=== PATIENT | male | born 1985 | race Caucasian/White ===

== ENCOUNTER 2016-10-25 16:47 | Emergency (ER) | payer OTHER ==
[2016-10-25 17:11] VITALS: RESP 18
--- NOTE | 2016-10-25 17:28 | ED ---
URI HPI - General Chief Complaint: Upper Respiratory Infection Stated Complaint: SORE THROAT Time Seen by Provider: 10/25/16 17:15 Source: patient, RN notes reviewed Mode of arrival: ambulatory Limitations: no limitations - History of Present Illness Initial Comments: Patient is a 31-year-old male presents to the emergency room for evaluation of congestion and sore throat. Patient states sore throat began yesterday. Patient states the pain is not getting any better. Patient denies taking anything [id number]. Patient states pain is worse when he swallows. Patient does state he has a dry cough. Patient denies smoking. Patient denies headache, ear pain, chest pain, shortness of breath, abdominal pain, nausea, vomiting, diarrhea, constipation. Patient denies any fevers. Patient states he is up-to-date on all his immunizations. - Related Data Home Medications Medication Instructions Recorded Confirmed Paliperidone Palmitate [Invega 78 mg IM Q28D 06/17/16 10/25/16 Sustenna] Previous Rx's Medication Instructions Recorded Fluticasone Nasal [place] [Flonase 2 spr EA NOSTRIL DAILY PRN #1 10/25/16 Nasal [place]] bottle guaiFENesin [Mucinex] 1,200 mg PO BID PRN #12 tab.er.12h 10/25/16 Allergies Allergy/AdvReac Type Severity Reaction Status Date / Time No Known Allergies Allergy Verified 10/25/16 17:11 Review of Systems ROS Statement: Those systems with pertinent positive or pertinent negative responses have been documented in the HPI. ROS Other: All systems not noted in ROS Statement are negative. Past Medical History Past Medical History: No Reported History History of Any Multi-Drug Resistant Organisms: None Reported Past Surgical History: No Surgical Hx Reported Additional Past Surgical History / Comment(s): cyst over eye removed Past Psychological History: ADD/ADHD Smoking Status: Current every day smoker Past Alcohol Use History: Occasional Past Drug Use History: Marijuana General Exam - General Exam Comments Initial Comments: Sitting in exam room in no acute distress. Limitations: no limitations General appearance: alert, in no apparent distress Head exam: Present: atraumatic, normocephalic, normal inspection Eye exam: Present: normal appearance ENT exam: Present: normal exam, normal oropharynx, mucous membranes moist, TM's normal bilaterally, normal external ear exam Neck exam: Present: normal inspection, full ROM. Absent: tenderness, lymphadenopathy Respiratory exam: Present: normal lung sounds bilaterally. Absent: respiratory distress Cardiovascular Exam: Present: regular rate, normal rhythm, normal heart sounds Extremities exam: Present: normal inspection Back exam: Present: normal inspection Neurological exam: Present: alert, oriented X3, CN II-XII intact, normal gait Psychiatric exam: Present: normal affect, normal mood Skin exam: Present: warm, dry, intact, normal color. Absent: rash Course Vital Signs 10/25/16 17:08 Temperature 99.0 F Pulse Rate 88 Respiratory 18 Rate Blood Pressure 138/63 O2 Sat by Pulse 98 Oximetry Medical Decision Making - Medical Decision Making Patient is a 31-year-old male presents emergency room for evaluation of sinus congestion and sore throat. Influenza negative. Rapid strep negative. Patient 's symptoms viral. Advised patient to take Mucinex and Flonase for symptoms and to return to his primary care provider symptoms are not improving in 7 days. Patient states he understands everything that was discussed with him. Return parameters discussed. Case discussed with Dr. Skinner. - Lab Data Lab Results 10/25/16 10/25/16 Range/Units 17:38 17:38 Influenza Type A RNA Not Detected (Not Detectd) Influenza Type B (PCR) Not Detected (Not Detectd) Group A Strep Rapid Negative (Negative) Disposition Clinical Impression: Upper respiratory infection Disposition: HOME SELF-CARE Condition: Good Instructions: Upper Respiratory Infection (ED) Additional Instructions: Saltwater gargles. Take medications as directed. Take Tylenol or Motrin as needed for discomfort. Please follow up with primary care provider in 1-2 days. If any new symptom arises or symptoms worsen, return to ER as soon as possible. Prescriptions: Fluticasone Nasal [place] [Flonase Nasal [place]] 2 spr EA NOSTRIL DAILY PRN #1 bottle PRN Reason: Congestion guaiFENesin [Mucinex] 1,200 mg PO BID PRN #12 tab.er.12h PRN Reason: Congestion Referrals: India Zambrano MD [Primary Care Provider] - 1-2 days Time of Disposition: 18:13
[2016-10-25 18:37] VITALS: BP 131/78; PULSE 78; TEMP 97.9
== END 2016-10-25 18:36 | disposition home or self-care (01) ==
LOC: EC 16:47
DX: J02.9 Acute pharyngitis, unspecified (principal); Z79.899 Other long term (current) drug therapy; F17.200 Nicotine dependence, unspecified, uncomplicated
CPT/HCPCS: 87081; 87430; 87502; 99283

== ENCOUNTER 2017-01-11 14:13 | Emergency (ER) | payer OTHER ==
[2017-01-11 14:36] VITALS: RESP 20
--- NOTE | 2017-01-11 14:56 | ED ---
Extremity Problem HPI - General Chief complaint: Extremity Problem,Nontraumatic Stated complaint: Knee Pain Time Seen by Provider: 01/11/17 14:32 Source: patient Mode of arrival: ambulatory Limitations: no limitations - History of Present Illness Initial comments: Patient is a 31-year-old male chief complaint of left knee pain and redness and swelling for approximately 3 days. Patient reports this is happened before and he was told to follow-up with his primary care provider. He states that he did follow-up with primary care provider stated that it was a cyst and there is nothing they could do. Patient reports that it went away afterwards. Patient reports that it has returned and became increasingly worse over the past 3 days. He states that it is warm to touch. Patient states he is able to bear weight over his knee just discussed some discomfort with total flexion. Patient denies any recent fever, chills, shortness of breath, chest pain, back pain, abdominal pain, nausea vomiting, numbness or tingling, dysuria or hematuria, constipation or diarrhea, headaches or visual changes, or any other current symptoms - Related Data Home Medications Medication Instructions Recorded Confirmed Paliperidone Palmitate [Invega 78 mg IM Q28D 06/17/16 10/25/16 Sustenna] Previous Rx's Medication Instructions Recorded Fluticasone Nasal [place] [Flonase 2 spr EA NOSTRIL DAILY PRN #1 10/25/16 Nasal [place]] bottle guaiFENesin [Mucinex] 1,200 mg PO BID PRN #12 tab.er.12h 10/25/16 Ibuprofen [Motrin] 600 mg PO Q6HR PRN #30 tab 01/11/17 Allergies Allergy/AdvReac Type Severity Reaction Status Date / Time No Known Allergies Allergy Verified 01/11/17 14:36 Review of Systems ROS Statement: Those systems with pertinent positive or pertinent negative responses have been documented in the HPI. ROS Other: All systems not noted in ROS Statement are negative. Past Medical History Past Medical History: No Reported History History of Any Multi-Drug Resistant Organisms: None Reported Past Surgical History: No Surgical Hx Reported Additional Past Surgical History / Comment(s): cyst over eye removed Past Psychological History: ADD/ADHD Smoking Status: Current every day smoker Past Alcohol Use History: Occasional Past Drug Use History: Marijuana General Exam - General Exam Comments Initial Comments: Well-appearing 31-year-old male. Patient does appear to be mentally challenged. Limitations: no limitations General appearance: alert, in no apparent distress Head exam: Present: atraumatic, normocephalic, normal inspection Eye exam: Present: normal appearance, PERRL, EOMI. Absent: scleral icterus, conjunctival injection, periorbital swelling ENT exam: Present: normal exam, mucous membranes moist Neck exam: Present: normal inspection. Absent: tenderness, meningismus, lymphadenopathy Respiratory exam: Present: normal lung sounds bilaterally. Absent: respiratory distress, wheezes, rales, rhonchi, stridor Cardiovascular Exam: Present: regular rate, normal rhythm, normal heart sounds. Absent: systolic murmur, diastolic murmur, rubs, gallop, clicks GI/Abdominal exam: Present: soft, normal bowel sounds. Absent: distended, tenderness, guarding, rebound, rigid Extremities exam: Present: normal inspection, full ROM, normal capillary refill. Absent: tenderness, pedal edema, joint swelling, calf tenderness Left Upper Leg exam: Present: normal inspection, full ROM Knee exam: Present: normal inspection, full ROM, tenderness (tenderness and erythema over patella), swelling (Swelling over the distal patella.) Lower Leg exam: Present: normal inspection, full ROM Ankle exam: Present: normal inspection, full ROM Foot/Toe exam: Present: normal inspection, full ROM Neurovascular tendon exam: Present: no vascular compromise Gait: observed and normal Back exam: Present: normal inspection Neurological exam: Present: alert, oriented X3, CN II-XII intact Course Vital Signs 01/11/17 14:32 Temperature 98.1 F Pulse Rate 83 Respiratory 20 Rate Blood Pressure 121/81 O2 Sat by Pulse 99 Oximetry Medical Decision Making - Medical Decision Making Patient is a 31-year-old male with 3 days of increasing read this and swelling over the left knee. Patient reports that this is happened before. It does appear to be a patellar bursitis. There is relatively fluctuant. No evidence of significant erythema indicating signs of infection. Patient is able to bear weight over the knee and has full range of motion. Patient was given an Bang wrap for compression and instructed to put ice over it is much as possible. We discussed return parameters including returning if the redness starts to swell over the entire knee joint. Patient will be discharged with Motrin 800 instructed to take as directed. Patient also given referral for orthopedic physician patient understands needs to follow-up. Patient understands treatment plan will comply. - Radiology Data Radiology results: report reviewed Soft tissue protuberance swelling superficial to the patellar tendon. Correlate for bursitis, hematoma or soft tissue infection. Disposition Clinical Impression: Patellar bursitis of left knee Disposition: HOME SELF-CARE Condition: Good Instructions: Knee Bursitis (ED) Additional Instructions: Return to emergency department if the redness continues to spread. Follow-up with orthopedic physician next week. Apply ice over the knee is much as possible. Wear the Bang wrap whenever awake. He can remove the Bang wrap at night. Patient advised to take anti-inflammatory medications as prescribed. Return to the emergency department if any alarming signs or symptoms occur. Prescriptions: Ibuprofen [Motrin] 600 mg PO Q6HR PRN #30 tab PRN Reason: Pain Referrals: India Zambrano MD [Primary Care Provider] - 1-2 days José Luis Huang MD [STAFF PHYSICIAN] - 1-2 days Time of Disposition: 15:38
--- NOTE | 2017-01-11 15:25 | XR ---
EXAMINATION TYPE: XR knee complete LT DATE OF EXAM: 01/11/2017 3:01 PM COMPARISON: NONE HISTORY: 31-year-old male with left knee pain and swelling to the patella TECHNIQUE: 3 views FINDINGS: No acute fracture, subluxation, or dislocation. No knee joint effusion. Extensor mechanism is intact. Focal soft tissue protuberance and swelling measuring 5.2 x 2.1 cm located superficial to the patellar tendon. IMPRESSION: 1. No acute osseous abnormality seen. 2. Focal soft tissue protuberance and swelling superficial to the patellar tendon. Correlate for burs itis, hematoma, or soft tissue infection.
[2017-01-11 15:47] VITALS: BP 126/78; PULSE 74; TEMP 98
== END 2017-01-11 15:48 | disposition home or self-care (01) ==
LOC: EC 14:13
DX: M70.52 Other bursitis of knee, left knee (principal); F17.200 Nicotine dependence, unspecified, uncomplicated; Z79.899 Other long term (current) drug therapy
CPT/HCPCS: 99283

== ENCOUNTER 2017-01-13 17:03 | Emergency (ER) | payer OTHER ==
[2017-01-13 17:36] VITALS: BP 125/73; PULSE 77; RESP 18; TEMP 98.6
--- NOTE | 2017-01-13 18:32 | ED ---
Lower Extremity Injury HPI - General Chief Complaint: Extremity Injury, Lower Stated Complaint: left knee - draining Time Seen by Provider: 01/13/17 18:09 Source: patient, RN notes reviewed Mode of arrival: ambulatory - History of Present Illness Initial Comments: Patient is a 31-year-old male presents emergency department with draining out of his left knee. Patient was seen in emergency department 2 days ago and diagnosed with bursitis. Patient has significant swelling and redness over the left knee. Patient states that it popped an hour prior to arriving there is a purulent fluid coming from the area. Patient denies any decreased range of motion. Patient reports that this pain feels much relieved after the pressure was released. Patient states that he is not ALLERGIC to any antibiotics. Patient denies any fever or chills. - Related Data Home Medications Medication Instructions Recorded Confirmed Paliperidone Palmitate [Invega 78 mg IM Q28D 06/17/16 10/25/16 Sustenna] Previous Rx's Medication Instructions Recorded Fluticasone Nasal [place] [Flonase 2 spr EA NOSTRIL DAILY PRN #1 10/25/16 Nasal [place]] bottle guaiFENesin [Mucinex] 1,200 mg PO BID PRN #12 tab.er.12h 10/25/16 Ibuprofen [Motrin] 600 mg PO Q6HR PRN #30 tab 01/11/17 Sulfamethox-Tmp 800-160Mg [Bactrim 2 tab PO Q12HR 7 Days 01/13/17 DS 800-160 mg] Allergies Allergy/AdvReac Type Severity Reaction Status Date / Time No Known Allergies Allergy Verified 01/13/17 17:36 Review of Systems ROS Statement: Those systems with pertinent positive or pertinent negative responses have been documented in the HPI. ROS Other: All systems not noted in ROS Statement are negative. Past Medical History Past Medical History: No Reported History History of Any Multi-Drug Resistant Organisms: None Reported Past Surgical History: No Surgical Hx Reported Additional Past Surgical History / Comment(s): cyst over eye removed Past Psychological History: ADD/ADHD Smoking Status: Current every day smoker Past Alcohol Use History: Occasional Past Drug Use History: Marijuana General Exam - General Exam Comments Initial Comments: Pleasant 31-year-old male. No distress. General appearance: alert, in no apparent distress Head exam: Present: atraumatic, normocephalic, normal inspection Eye exam: Present: normal appearance, PERRL, EOMI. Absent: scleral icterus, conjunctival injection, periorbital swelling ENT exam: Present: normal exam, mucous membranes moist Neck exam: Present: normal inspection. Absent: tenderness, meningismus, lymphadenopathy Respiratory exam: Present: normal lung sounds bilaterally. Absent: respiratory distress, wheezes, rales, rhonchi, stridor Cardiovascular Exam: Present: regular rate, normal rhythm, normal heart sounds. Absent: systolic murmur, diastolic murmur, rubs, gallop, clicks GI/Abdominal exam: Present: soft, normal bowel sounds. Absent: distended, tenderness, guarding, rebound, rigid Extremities exam: Present: normal inspection, full ROM, normal capillary refill. Absent: tenderness, pedal edema, joint swelling, calf tenderness Left Upper Leg exam: Present: normal inspection, full ROM Knee exam: Present: full ROM. Absent: normal inspection (slight erythema and small incision where purulent fluid is draining out. ), tenderness, swelling Lower Leg exam: Present: normal inspection, full ROM Ankle exam: Present: normal inspection, full ROM Back exam: Present: normal inspection Neurological exam: Present: alert, oriented X3, CN II-XII intact Psychiatric exam: Present: normal affect, normal mood Skin exam: Present: warm, dry, intact, normal color. Absent: rash Course Vital Signs 01/13/17 17:33 Temperature 98.6 F Pulse Rate 77 Respiratory 18 Rate Blood Pressure 125/73 O2 Sat by Pulse 98 Oximetry Medical Decision Making - Medical Decision Making Patient is a 31-year-old male with an abscess over the left knee. Patient knee was drained and wound culture obtained. Patient given a sterile dressing and instructed to keep the area clean. Patient will be started on Bactrim. Patient understands he needs to take antibiotic antibiotic. Patient understands treatment plan will comply. Return parameters were discussed. Disposition Clinical Impression: Abscess of knee, left Disposition: HOME SELF-CARE Condition: Good Instructions: Abscess (ED) Additional Instructions: Patient advised to complete entire antibiotic prescription. Follow-up with primary care provider if symptoms continue persist for the next 2 days. Return to emergency Department if any alarming signs or symptoms occur. Keep the area covered. Prescriptions: Sulfamethox-Tmp 800-160Mg [Bactrim DS 800-160 mg] 2 tab PO Q12HR 7 Days Referrals: India Zambrano MD [Primary Care Provider] - 1-2 days Time of Disposition: 18:30
== END 2017-01-13 18:46 | disposition home or self-care (01) ==
LOC: EC 17:03
DX: L02.416 Cutaneous abscess of left lower limb (principal); F17.200 Nicotine dependence, unspecified, uncomplicated; Z79.899 Other long term (current) drug therapy
CPT/HCPCS: 87070; 87205; 99283

== ENCOUNTER → 2017-05-21 | Outpatient (CLI) | payer OTHER ==
--- NOTE | 2017-05-22 10:31 | ECHOF ---
Referral Reason:[id number] Syncope MEASUREMENTS -------- HEIGHT: 167.6 cm WEIGHT: 68.0 kg BP: IVSd: 1.1 cm (0.6 - 1.1) LVIDd: 3.8 cm (3.9 - 5.3) LVPWd: 1.1 cm (0.6 - 1.1) IVSs: 1.7 cm LVIDs: 2.1 cm LVPWs: 1.6 cm Ao Diam: 3.0 cm (2.0 - 3.7) AV Cusp: 1.8 cm (1.5 - 2.6) LA Diam: 3.7 cm (2.7 - 3.8) MV EXCURSION: 19.458 mm (> 18.000) MV EF SLOPE: 144 mm/s (70 - 150) EPSS: 0.4 cm MV E Juan M: 0.94 m/s MV DecT: 208 ms MV A Juan M: 0.70 m/s MV E/A Ratio: 1.33 RAP: 5.00 mmHg RVSP: 17.86 mmHg FINDINGS -------- Sinus rhythm. This was a technically good study. Left ventricular wall thickness is normal. Overall left ventricular systolic function is normal with, an EF between 55 - 60 %. The right ventricle is normal in size and function. The left atrium is normal in size. The right atrium is normal in size. The aortic valve is trileaflet, and appears structurally normal. No aortic stenosis or regurgitation. There is trace mitral regurgitation. Trace tricuspid regurgitation present. The right ventricular systolic pressure, as measured by Doppler, is 17.86mmHg. Pulmonic valve appears structurally normal. The aortic root size is normal. The pericardium is normal. CONCLUSIONS -------- 1. Sinus rhythm. 2. Trace tricuspid regurgitation present. 3. The right ventricular systolic pressure, as measured by Doppler, is 17.86mmHg. 4. Pulmonic valve appears structurally normal. 5. The aortic root size is normal. 6. The pericardium is normal. 7. This was a technically good study. 8. Left ventricular wall thickness is normal. 9. Overall left ventricular systolic function is normal with, an EF between 55 - 60 %. 10. The right ventricle is normal in size and function. 11. The left atrium is normal in size. 12. The right atrium is normal in size. 13. The aortic valve is trileaflet, and appears structurally normal. No aortic stenosis or regurgitation. 14. There is trace mitral regurgitation. FUR BLOWER: Meenu De La Cruz RDCS
== END | disposition home or self-care (01) ==
LOC: RADECHMAIN 12:57
PROVIDERS: ATTEND Internal Medicine
DX: R55 Syncope and collapse (principal)
CPT/HCPCS: 93306

== ENCOUNTER 2017-07-29 09:25 | Emergency (ER) | payer OTHER ==
[2017-07-29 09:33] VITALS: BP 122/56; PULSE 81; RESP 18; TEMP 97.1
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
--- NOTE | 2017-07-29 10:04 | XR ---
Right wrist HISTORY: Trauma and pain 4 views of the right wrist Bone mineralization, alignment maintained. There is some widening of the scapholunate distance. No fr acture or dislocation. There is soft tissue swelling. IMPRESSION: Scapholunate distance dissociation, consider wrist MRI,
== END 2017-07-29 10:30 | disposition home or self-care (01) ==
LOC: EC 09:25
DX: S63.501A Unspecified sprain of right wrist, initial encounter (principal); F90.9 Attention-deficit hyperactivity disorder, unspecified type; F17.200 Nicotine dependence, unspecified, uncomplicated; Z79.899 Other long term (current) drug therapy; V29.9XXA Motorcycle rider (driver) (passenger) injured in unspecified traffic accident, initial encounter; Y93.55 Activity, bike riding
CPT/HCPCS: 29125; 99283

== ENCOUNTER 2017-12-26 13:42 | Emergency (ER) | payer OTHER ==
--- NOTE | 2017-12-26 15:30 | XR ---
EXAMINATION TYPE: XR chest 2V DATE OF EXAM: 12/26/2017 COMPARISON: Prior chest x-ray 03/28/2015 HISTORY: Chest pain TECHNIQUE: Frontal and lateral views of the chest are obtained. FINDINGS: There is no focal air space opacity, pleural effusion, or pneumothorax seen. The cardiac silhouette size is within normal limits. The osseous structures are intact. IMPRESSION: No acute cardiopulmonary process.
--- NOTE | 2017-12-26 15:48 | ED ---
General Adult HPI - General Chief complaint: Chest Pain Stated complaint: Chest pain Time Seen by Provider: 12/26/17 15:03 Source: patient, RN notes reviewed, old records reviewed Mode of arrival: wheelchair Limitations: no limitations - History of Present Illness Initial comments: This is a 32-year-old male to the ER for evasive chest pain. Patient states he' s had episodic chest pain 3 days. No prior history of chest pain no injuries. Patient states that when he moves his left arm he might have some increased pain in his left side of his chest. He again denies any injury or specific trauma, was wrestling with a friend but again denies any injury. Family brings inpatient, patient himself is poor historian secondary to underlying medical clinical condition. Patient has no fevers or shortness of breath. No modifying factors for pain - Related Data Home Medications Medication Instructions Recorded Confirmed Paliperidone Palmitate [Invega 78 mg IM Q28D 06/17/16 12/26/17 Sustenna] Previous Rx's Medication Instructions Recorded Naproxen [Naprosyn] 500 mg PO Q12HR PRN #30 tab 12/26/17 Allergies Allergy/AdvReac Type Severity Reaction Status Date / Time No Known Allergies Allergy Verified 12/26/17 15:10 Review of Systems ROS Statement: Those systems with pertinent positive or pertinent negative responses have been documented in the HPI. ROS Other: All systems not noted in ROS Statement are negative. Past Medical History Past Medical History: No Reported History History of Any Multi-Drug Resistant Organisms: None Reported Past Surgical History: No Surgical Hx Reported Additional Past Surgical History / Comment(s): cyst over eye removed Past Psychological History: ADD/ADHD Smoking Status: Current every day smoker Past Alcohol Use History: Occasional Past Drug Use History: Marijuana General Exam Limitations: no limitations General appearance: alert, in no apparent distress Head exam: Present: atraumatic, normocephalic, normal inspection Eye exam: Present: normal appearance, PERRL, EOMI. Absent: scleral icterus, conjunctival injection, periorbital swelling ENT exam: Present: normal exam, mucous membranes moist Neck exam: Present: normal inspection. Absent: tenderness, meningismus, lymphadenopathy Respiratory exam: Present: normal lung sounds bilaterally. Absent: respiratory distress, wheezes, rales, rhonchi, stridor Cardiovascular Exam: Present: regular rate, normal rhythm, normal heart sounds. Absent: systolic murmur, diastolic murmur, rubs, gallop, clicks GI/Abdominal exam: Present: soft, normal bowel sounds. Absent: distended, tenderness, guarding, rebound, rigid Extremities exam: Present: normal inspection, full ROM, normal capillary refill. Absent: tenderness, pedal edema, joint swelling, calf tenderness Back exam: Present: normal inspection Neurological exam: Present: alert, oriented X3, CN II-XII intact Psychiatric exam: Present: normal affect, normal mood Skin exam: Present: warm, dry, intact, normal color. Absent: rash Course Vital Signs 12/26/17 12/26/17 14:47 16:13 Temperature 98.3 F 98 F Pulse Rate 74 78 Respiratory 20 16 Rate Blood Pressure 141/79 139/79 O2 Sat by Pulse 99 98 Oximetry - Reevaluation(s) Reevaluation #1: Family's states that patient does have Motrin and Tylenol at home which he prefers not taking EKG Findings - EKG Comments: EKG Findings:: EKG shows normal sinus rhythm rate of 68, TX 1:30, QRS 78, QTC 421 Medical Decision Making - Medical Decision Making 32 male the ER for evaluation of chest pain, atypical nonspecific left-sided chest pain reproducible with palpation. No specific injury noted, x-rays negative. EKG normal and patient can be discharged home patient has no significant cardiac risk factors denies drug or alcohol abuse - Radiology Data Radiology results: report reviewed (Chest x-rays negative for acute disease), image reviewed Disposition Clinical Impression: Atypical chest pain, Costalchondritis Disposition: HOME SELF-CARE Condition: Good Instructions: Costochondritis (ED) Prescriptions: Naproxen [Naprosyn] 500 mg PO Q12HR PRN #30 tab PRN Reason: Pain Referrals: Bennie Mckinney MD [Primary Care Provider] - 1-2 days
[2017-12-26 16:14] VITALS: BP 139/79; PULSE 78; RESP 16; TEMP 98
--- NOTE | 2017-12-29 08:54 | CDI ---
Documentation Clarification OP Dear Kyler NGO, DO Please do addendum to ED report for HPI , Physical exam and MDM. 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
== END 2017-12-26 16:13 | disposition home or self-care (01) ==
LOC: EC 13:42
DX: M94.0 Chondrocostal junction syndrome [Tietze] (principal); F90.9 Attention-deficit hyperactivity disorder, unspecified type; F17.200 Nicotine dependence, unspecified, uncomplicated; Z79.899 Other long term (current) drug therapy
CPT/HCPCS: 71046; 93005; 99285

== ENCOUNTER 2018-03-05 11:09 | Emergency (ER) | payer OTHER ==
[2018-03-05 11:28] VITALS: BP 120/60; PULSE 64; RESP 20; TEMP 98.6
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
== END 2018-03-05 12:00 | disposition home or self-care (01) ==
LOC: EC 11:09
DX: S70.12XA Contusion of left thigh, initial encounter (principal); F79 Unspecified intellectual disabilities; F17.200 Nicotine dependence, unspecified, uncomplicated; Z79.899 Other long term (current) drug therapy; X58.XXXA Exposure to other specified factors, initial encounter
CPT/HCPCS: 99283

== ENCOUNTER 2018-04-06 10:37 | Emergency (ER) | payer OTHER ==
[2018-04-06 10:55] VITALS: BP 123/71; PULSE 60; RESP 18; TEMP 98.3
--- NOTE | 2018-04-06 11:58 | ED ---
General Adult HPI - General Chief complaint: Wound/Laceration Stated complaint: CUT ON LEFT SHOULDER Time Seen by Provider: 04/06/18 11:24 Source: patient, RN notes reviewed Mode of arrival: ambulatory Limitations: no limitations - History of Present Illness Initial comments: Patient 32-year-old male presented to the emergency room today with a chief complaint of a laceration to the left shoulder area. He states he does not know when it occurred. He noticed it yesterday. He does admit some local tenderness. He is met that he works in [employer] service is very active throughout the day. Patient denying any other complaints or symptoms. Patient denies any recent fever, chills, shortness of breath, chest pain, back pain, abdominal pain , nausea or vomiting, numbness or tingling, dysuria or hematuria, constipation or diarrhea, headaches or visual changes, or any other complaints. Patient denies any recent fever, chills, shortness of breath, chest pain, back pain, abdominal pain, headaches or visual changes, or any other complaints. - Related Data Home Medications Medication Instructions Recorded Confirmed Paliperidone Palmitate [Invega 78 mg IM Q28D 06/17/16 04/06/18 Sustenna] Previous Rx's Medication Instructions Recorded Cephalexin [Keflex] 500 mg PO Q12HR 10 Days cap 04/06/18 Allergies Allergy/AdvReac Type Severity Reaction Status Date / Time No Known Allergies Allergy Verified 04/06/18 11:32 Review of Systems ROS Statement: Those systems with pertinent positive or pertinent negative responses have been documented in the HPI. ROS Other: All systems not noted in ROS Statement are negative. Past Medical History Past Medical History: No Reported History Additional Past Medical History / Comment(s): mentally challenged-unsure of history History of Any Multi-Drug Resistant Organisms: None Reported Past Surgical History: No Surgical Hx Reported Additional Past Surgical History / Comment(s): cyst over eye removed Past Psychological History: ADD/ADHD Smoking Status: Current every day smoker Past Alcohol Use History: Occasional Past Drug Use History: Marijuana General Exam - General Exam Comments Initial Comments: General: The patient is awake and alert, in no distress, and does not appear acutely ill. Eye: Pupils are equal, round and reactive to light, extra-ocular movements are intact. No nystagmus. There is normal conjunctiva bilaterally. No signs of icterus. Ears, nose, mouth and throat: There are moist mucous membranes and no oral lesions. Neck: The neck is supple, there is no tenderness or JVD. Musculoskeletal: Normal ROM, no tenderness. Strength 5/5. Sensation intact. Pulses equal bilaterally 2+. Neurological: A&O x 3. CN II-XII intact, There are no obvious motor or sensory deficits. Coordination appears grossly intact. Speech is normal. Skin: Superficial laceration to the left shoulder area. Local redness. Psychiatric: Cooperative, appropriate mood & affect, normal judgment. Limitations: no limitations Course Vital Signs 04/06/18 10:51 Temperature 98.3 F Pulse Rate 60 Respiratory 18 Rate Blood Pressure 123/71 O2 Sat by Pulse 98 Oximetry Medical Decision Making - Medical Decision Making Patient's tetanus updated. Will be started on antibiotics cover for infection. Advised to he was secondary intentions at this time as lacerations is greater than 24 hours old. Disposition Clinical Impression: Laceration Disposition: HOME SELF-CARE Condition: Good Instructions: Laceration (ED) Additional Instructions: Please use medication as discussed. Please follow-up with family doctor in the next 2-5 days of symptoms have not improved. Please return to emergency room if the symptoms increase or worsen or for any other concerns. Prescriptions: Cephalexin [Keflex] 500 mg PO Q12HR 10 Days cap Is patient prescribed a controlled substance at d/c from ED?: No Referrals: India Zambrano MD [Primary Care Provider] - 1-2 days Time of Disposition: 12:00
[2018-04-06] MEDS ORDERED: DIPH,PERTUS(ACELL)TETVAC-LF 0.5 ML VIAL IM ONE (11:59)
== END 2018-04-06 12:26 | disposition home or self-care (01) ==
LOC: EC 10:37
DX: S41.012A Laceration without foreign body of left shoulder, initial encounter (principal); F90.9 Attention-deficit hyperactivity disorder, unspecified type; F17.200 Nicotine dependence, unspecified, uncomplicated; Z79.899 Other long term (current) drug therapy; Z23 Encounter for immunization; W45.8XXA Other foreign body or object entering through skin, initial encounter; Y93.9 Activity, unspecified; Y92.89 Other specified places as the place of occurrence of the external cause
CPT/HCPCS: 90471; 90715; 99282

== ENCOUNTER 2018-05-04 14:20 | Emergency (ER) | payer OTHER ==
[2018-05-04 15:30] VITALS: RESP 18; TEMP 98
[2018-05-04] MEDS ORDERED: IBUPROFEN 600 MG TAB PO STA (16:35)
--- NOTE | 2018-05-04 16:58 | ED ---
Wound/Laceration HPI - General Chief Complaint: Wound/Laceration Stated Complaint: finger lac Time Seen by Provider: 05/04/18 15:58 Source: patient Mode of arrival: ambulatory Limitations: no limitations - History of Present Illness Initial Comments: This is a 33yo male who denies PMH who presents today for CC of I crushed my left 4th finger yesterday afternoon. 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 He immediately noticed the nail was barely "hanging on" did not notice any lacerations. Pt friend irrigated and bandaged finger and gave him "some pill" for pain. Pt denies numbness, tingling, loss of sensation, decreased ROM, or mm weakness of the digit. Pt admited to pain at the tip affected digit, avulsion of nail and swelling of the finger tip. Pt presented to the ER to "make sure it wasnt broken ". Patient denies any recent fever, chills, shortness of breath, chest pain, back pain, abdominal pain, nausea or vomiting, numbness or tingling, dysuria or hematuria, constipation or diarrhea, headaches or visual changes, or any other complaints. Pt poor historian. Pt mother states his tDap was UTD he recieved it last year for different injury. " - Related Data Home Medications Medication Instructions Recorded Confirmed Paliperidone Palmitate [Invega 78 mg IM Q28D 06/17/16 05/04/18 Sustenna] Previous Rx's Medication Instructions Recorded Cephalexin [Keflex] 500 mg PO Q12HR 5 Days #10 cap 05/04/18 Allergies Allergy/AdvReac Type Severity Reaction Status Date / Time No Known Allergies Allergy Verified 05/04/18 16:15 Review of Systems ROS Statement: Those systems with pertinent positive or pertinent negative responses have been documented in the HPI. ROS Other: All systems not noted in ROS Statement are negative. Constitutional: Denies: fever, chills ENT: Denies: ear pain Respiratory: Denies: cough, dyspnea Cardiovascular: Denies: chest pain, palpitations Gastrointestinal: Denies: abdominal pain, nausea, vomiting Genitourinary: Denies: urgency, dysuria Musculoskeletal: Reports: as per HPI. Denies: back pain Skin: Reports: as per HPI Past Medical History Past Medical History: No Reported History Additional Past Medical History / Comment(s): mentally challenged-unsure of history History of Any Multi-Drug Resistant Organisms: None Reported Past Surgical History: No Surgical Hx Reported Additional Past Surgical History / Comment(s): cyst over eye removed Past Psychological History: ADD/ADHD Smoking Status: Current every day smoker Past Alcohol Use History: Occasional Past Drug Use History: Marijuana General Exam - General Exam Comments Initial Comments: General: The patient is awake and alert, in no distress, and does not appear acutely ill. Eye: Pupils are equal, round and reactive to light, extra-ocular movements are intact. No nystagmus. There is normal conjunctiva bilaterally. No signs of icterus. Ears, nose, mouth and throat: There are moist mucous membranes and no oral lesions. Neck: The neck is supple, there is no tenderness or JVD. Cardiovascular: There is a regular rate and rhythm. No murmur, rub or gallop is appreciated. Respiratory: Lungs are clear to auscultation, respirations are non-labored, breath sounds are equal. No wheezes, stridor, rales, or rhonchi. Gastrointestinal: [Soft, non-distended, non-tender abdomen without masses or organomegaly noted. There is no rebound or guarding present. No CVA tenderness. Bowel sounds are unremarkable.] Musculoskeletal: Normal ROM and 5/5 strength at MCP, PIP and DIP joints of all 5 digits of each hand b/l, tenderness over tip of 4th left digit Strength 5/5. Sensation intact. Pulses equal bilaterally 2+. Capillary refill <2sec. Neurological: A&O x 3. CN II-XII intact, There are no obvious motor or sensory deficits. Coordination appears grossly intact. Speech is normal. Skin: Skin is warm and dry and no rashes or lesions are noted. complete avulsion of left 4th digit nail, nail attached by small piece of skin. Pt would not allow me to remove nail to asess for nail bed laceration, no obvious nail bed laceration. Psychiatric: Cooperative, appropriate mood & affect, normal judgment. Limitations: no limitations Course Vital Signs 05/04/18 05/04/18 15:27 18:12 Temperature 98.0 F Pulse Rate 57 L 58 L Respiratory 18 18 Rate Blood Pressure 119/70 121/73 O2 Sat by Pulse 100 100 Oximetry Medical Decision Making - Medical Decision Making 33 with crush injury to tip of left 4th digit with complete nail avulision with only superficial attachment of nail to skin. XR obtained (-) fracture. wound irrigated and I attempted to cut back nail for nail bed assessment. Pt refused. I offered digital block pt refused. I urged him to let me perform procedure pt refused again. Pt neurovascularly intact and finger tissue compressible low suspicion for compartment syndrome. I discussed case with Dr. Madison who assessed pt in person. At this time we feel pt would benefit from abx for infection ppx and PCP f/u for wound check. Pt agreed with plan. Pt was instructed to use over the counter tylenol or ibuprofen for pain. Patient was discharged in stable condition. Disposition Clinical Impression: Nail avulsion, finger, Finger pain, left Disposition: HOME SELF-CARE Condition: Good Instructions: Nail Avulsion (ED) Additional Instructions: Please take over the counter medication as needed for pain. Please follow-up with your primary care physician in 1-2 days. Please return to the Emergency Department for worsening or change in symptoms as discussed. Prescriptions: Cephalexin [Keflex] 500 mg PO Q12HR 5 Days #10 cap Is patient prescribed a controlled substance at d/c from ED?: No Referrals: India Zambrano MD [Primary Care Provider] - 1-2 days Time of Disposition: 17:43
--- NOTE | 2018-05-04 17:21 | XR ---
PROCEDURE: XR hand complete LT - 3 views DATE AND TIME: 05/04/2018 5:13 PM REFERRING PHYSICIAN: Evangelina Roberson CLINICAL INDICATION: Left fourth digit pain and laceration. Pinched finger while carrying heavy furni ture. TECHNIQUE: 3 views COMPARISON: None FINDINGS: The distal phalanx of the fourth finger shows a comminuted fracture of its tuft, with extension proxi aide while most of the shaft of the distal phalanx. The fracture line does not appear to the distal interphalangeal joint. There are prominent associated soft tissue laceration changes, which involve t he nail and nailbed. There is prominent soft tissue swelling of the distal fourth finger. The soft tissues are otherwise u nremarkable. No radiopaque foreign bodies. No soft tissue emphysema. There is no other fracture. IMPRESSION: FOURTH FINGER DISTAL PHALANGEAL FRACTURE/LACERATION DETAILED.
[2018-05-04 18:13] VITALS: BP 121/73; PULSE 58
== END 2018-05-04 18:13 | disposition home or self-care (01) ==
LOC: EC 14:20
DX: S61.305A Unspecified open wound of left ring finger with damage to nail, initial encounter (principal); F17.200 Nicotine dependence, unspecified, uncomplicated; Z79.899 Other long term (current) drug therapy; W23.0XXA Caught, crushed, jammed, or pinched between moving objects, initial encounter; Y93.89 Activity, other specified
CPT/HCPCS: 99283

== ENCOUNTER 2018-06-23 11:45 | Emergency (ER) | payer OTHER ==
[2018-06-23] MEDS ORDERED: IBUPROFEN 600 MG TAB PO STA (12:34)
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
--- NOTE | 2018-06-23 13:26 | XR ---
Right RIBS with PA chest x-ray HISTORY: Trauma and pain Frontal view of the chest and 2 views of the right ribs submitted and correlated to prior chest x-ray 12/26/2017 Chest x-ray is stable. No evident displaced rib fracture. No pneumothorax or pleural effusion. IMPRESSION: No acute abnormality. Bone scan could be performed for increased sensitivity as indicated .
[2018-06-23 13:48] VITALS: BP 132/56; PULSE 81; RESP 20; TEMP 98.3
== END 2018-06-23 13:41 | disposition home or self-care (01) ==
LOC: EC 11:45
DX: S20.211A Contusion of right front wall of thorax, initial encounter (principal); F17.210 Nicotine dependence, cigarettes, uncomplicated; F12.20 Cannabis dependence, uncomplicated; Z79.899 Other long term (current) drug therapy; W50.0XXA Accidental hit or strike by another person, initial encounter
CPT/HCPCS: 99283

== ENCOUNTER 2018-08-03 18:42 | Emergency (ER) | payer OTHER ==
[2018-08-03 18:55] VITALS: BP 133/77; PULSE 79; RESP 18; TEMP 98.3
--- NOTE | 2018-08-03 20:38 | ED ---
URI HPI - General Chief Complaint: Upper Respiratory Infection Stated Complaint: Trouble Breathing Time Seen by Provider: 08/03/18 19:05 Source: patient Mode of arrival: ambulatory Limitations: no limitations - History of Present Illness Initial Comments: 33 yo male with no PMH presenting today for cc of sore throat, cough and congestion. Pt states that he has had these symptoms x5 days. Pt denies sputum production, fever, difficulty breathing or swallowing. Pt does admit to pain with swallowing. Pt denies chest pain, shortness of breath or dyspnea upon exertion. Patient denies any recent back pain, abdominal pain, nausea or vomiting, numbness or tingling, dysuria or hematuria, constipation or diarrhea, headaches or visual changes, or any other complaints. Pt is tolerating PO intake. Upon arrival pt VS stable. Pt is afebrile, pt appears well-dry cough audible upon exam. - Related Data Home Medications Medication Instructions Recorded Confirmed Paliperidone Palmitate [Invega 78 mg IM Q28D 06/17/16 06/23/18 Sustenna] Previous Rx's Medication Instructions Recorded Ibuprofen [Motrin] 600 mg PO Q8HR PRN #30 tab 06/23/18 Albuterol Inhaler [Ventolin Hfa 1 - 2 puff INHALATION RT-Q6H PRN 08/03/18 Inhaler] #1 inhaler Azithromycin [Zithromax] 500 mg PO DAILY 3 Days #3 tab 08/03/18 Allergies Allergy/AdvReac Type Severity Reaction Status Date / Time No Known Allergies Allergy Verified 08/03/18 18:55 Review of Systems ROS Statement: Those systems with pertinent positive or pertinent negative responses have been documented in the HPI. ROS Other: All systems not noted in ROS Statement are negative. Constitutional: Denies: fever, chills, weight change ENT: Reports: as per HPI, throat pain Respiratory: Reports: cough. Denies: dyspnea, wheezes, hemoptysis, stridor Cardiovascular: Denies: chest pain, palpitations Endocrine: Denies: fatigue Gastrointestinal: Denies: abdominal pain, nausea, vomiting, diarrhea, constipation Genitourinary: Denies: urgency, dysuria, frequency Musculoskeletal: Denies: back pain Skin: Denies: rash, lesions Neurological: Denies: headache, weakness, numbness, paresthesias, confusion Past Medical History Past Medical History: No Reported History Additional Past Medical History / Comment(s): mentally challenged-unsure of history History of Any Multi-Drug Resistant Organisms: None Reported Past Surgical History: No Surgical Hx Reported Additional Past Surgical History / Comment(s): cyst over eye removed Past Psychological History: ADD/ADHD Smoking Status: Current every day smoker Past Alcohol Use History: Occasional Past Drug Use History: Marijuana General Exam - General Exam Comments Initial Comments: General: The patient is awake and alert, in no distress, and does not appear acutely ill. Eye: Pupils are equal, round and reactive to light, extra-ocular movements are intact. No nystagmus. There is normal conjunctiva bilaterally. No signs of icterus. Ears, nose, mouth and throat: There are moist mucous membranes and no oral lesions. Uvula midline, mild erythema of the orophaynx there is no tonsillar enlargement or exudates. No palpable anterior cervical lymph adenopathy. No signs of peritonsillar abscess. Posterior nasal drip Neck: The neck is supple, there is no tenderness or JVD. Cardiovascular: There is a regular rate and rhythm. No murmur, rub or gallop is appreciated. Respiratory: Lungs are clear to auscultation, respirations are non-labored, breath sounds are equal. No wheezes, stridor, rales, or rhonchi. (-) egophany. Gastrointestinal: Soft, non-distended, non-tender abdomen without masses or organomegaly noted. There is no rebound or guarding present. Musculoskeletal: Normal ROM, no tenderness. Strength 5/5. Sensation intact. Radial pulses equal bilaterally 2+. Neurological: A&O x 3. CN II-XII intact, There are no obvious motor or sensory deficits. Coordination appears grossly intact. Speech is normal. Skin: Skin is warm and dry and no rashes or lesions are noted. Psychiatric: Cooperative, appropriate mood & affect, normal judgment. Limitations: no limitations Course Vital Signs 08/03/18 18:53 Temperature 98.3 F Pulse Rate 79 Respiratory 18 Rate Blood Pressure 133/77 O2 Sat by Pulse 98 Oximetry Medical Decision Making - Medical Decision Making Influenza and Strep pharnygitis testing (-) CXR (-), no clinical signs of pneumonia. No signs of peritonsillar abscess or concerning sings for strep pharyngitis. At this time I feel pt has a viral pharyngitis. Pt given zpack and haler given smoking history, and pt stating that he felt like he had a chest cold, however lungs clear upon auscultation. In addition pt was instructed to take over the counter ibuprofen and tylenol for sore throat, increase fluid intake and follow-up with primary provider in 1-2 days. Pt agreed with plan. Return parameters discussed in detail. Patient verbalized understanding. Case discussed with Kay , who agreed with impression and plan. Pt discharged in stable condition. - Lab Data Lab Results 08/03/18 08/03/18 Range/Units 19:35 20:25 Influenza Type A RNA Not Detected (Not Detectd) Influenza Type B (PCR) Not Detected (Not Detectd) Group A Strep Rapid Negative (Negative) Disposition Clinical Impression: Upper respiratory infection Disposition: HOME SELF-CARE Condition: Good Instructions: Upper Respiratory Infection (ED) Additional Instructions: Please use medication as discussed. Please follow-up with family doctor in the next 2 days. Please return to emergency room if the symptoms increase or worsen or for any other concerns. Prescriptions: Albuterol Inhaler [Ventolin Hfa Inhaler] 1 - 2 puff INHALATION RT-Q6H PRN #1 inhaler PRN Reason: Wheezing Azithromycin [Zithromax] 500 mg PO DAILY 3 Days #3 tab Is patient prescribed a controlled substance at d/c from ED?: No Referrals: India Zambrano MD [Primary Care Provider] - 1-2 days Time of Disposition: 21:10
--- NOTE | 2018-08-03 20:42 | XR ---
EXAMINATION: XR chest 2V DATE AND TIME: 08/03/2018 7:31 PM CLINICAL INDICATION: Pain; cough TECHNIQUE: Portable AP semiupright COMPARISON: 06/23/2018 FINDINGS: The lungs are clear. The pleural spaces are negative. The cardiac silhouette is not enlarged. The remainder of the mediastinal silhouette is unremarkable. The skeletal structures and soft tissues are negative for acute findings. IMPRESSION: NO DEFINITE ACUTE PROCESS.
== END 2018-08-03 21:18 | disposition home or self-care (01) ==
LOC: EC 18:42
DX: J06.9 Acute upper respiratory infection, unspecified (principal); F90.9 Attention-deficit hyperactivity disorder, unspecified type; F17.200 Nicotine dependence, unspecified, uncomplicated; Z79.899 Other long term (current) drug therapy
CPT/HCPCS: 71046; 87081; 87430; 87502; 99283

== ENCOUNTER 2018-08-13 15:01 | Emergency (ER) | payer OTHER ==
[2018-08-13] MEDS ORDERED: IPRATROPIUM-ALBUTEROL 3 ML NEB INHALATION STA (15:38)
[2018-08-13] MEDS ORDERED: DEXAMETHASONE SOD PHOSPHATE 10 MG/ML 1 ML VIAL IM STA (15:38)
[2018-08-13] MEDS ORDERED: AMOXIC-POT CLAV 875-125MG 1 EACH TAB PO STA (15:38)
[2018-08-13] MEDS ORDERED: AMOXIC-POT CLAV 875MG STARTER 2 EACH TABLET PO STA (15:38)
--- NOTE | 2018-08-13 16:42 | XR ---
EXAMINATION TYPE: XR chest 2V DATE OF EXAM: 08/13/2018 COMPARISON: 08/03/2018 HISTORY: Chest pain TECHNIQUE: Frontal and lateral views of the chest are obtained. FINDINGS: Heart and mediastinum are normal. Lungs are clear. Diaphragm is normal. Bony thorax appear s normal. IMPRESSION: Normal chest. No change.
--- NOTE | 2018-08-13 16:44 | XR ---
EXAMINATION TYPE: XR soft tissue neck DATE OF EXAM: 08/13/2018 COMPARISON: NONE HISTORY: Cough and short of breath TECHNIQUE: 2 views FINDINGS: Vertebra have normal alignment. Posterior elements are intact. Disc spaces are normal. Prev ertebral soft tissues appear normal. There are no cervical ribs. Atlantoaxial facet joint is normal. Epiglottis is normal. Subglottic trachea is normal. IMPRESSION: Normal cervical soft tissue exam.
--- NOTE | 2018-08-13 16:49 | ED ---
URI HPI - General Chief Complaint: Upper Respiratory Infection Stated Complaint: GINA Time Seen by Provider: 08/13/18 15:24 Source: patient, RN notes reviewed, old records reviewed Mode of arrival: ambulatory Limitations: no limitations - History of Present Illness Initial Comments: This is a 33-year-old male to the ER for evaluation patient presents today for eversion sore throat cough congestion. Patient history positive smoking, will see diagnosed upper respiratory infection mild bronchitis, patient states he took an inhaler but his symptoms are not significantly improving complaining of sore throat and mild anterior neck pain currently. No recent travel history or known sick contacts. Patient denies any other significant complaint MD Complaint: cough, sore throat -: week(s) Severity scale (1-10): 3 Quality: aching, tingling Consistency: constant Improves With: nothing Worsens With: nothing Context: sick contacts Associated Symptoms: fever, chills, cough Treatments Prior to Arrival: none - Related Data Home Medications Medication Instructions Recorded Confirmed Paliperidone Palmitate [Invega 78 mg IM Q28D 06/17/16 06/23/18 Sustenna] Previous Rx's Medication Instructions Recorded Ibuprofen [Motrin] 600 mg PO Q8HR PRN #30 tab 06/23/18 Albuterol Inhaler [Ventolin Hfa 1 - 2 puff INHALATION RT-Q6H PRN 08/03/18 Inhaler] #1 inhaler Azithromycin [Zithromax] 500 mg PO DAILY 3 Days #3 tab 08/03/18 Albuterol Sulfate [Proair Hfa] 1 - 2 puff INHALATION Q4H PRN #1 08/13/18 inhaler Amoxic-Pot Clav 875-125Mg 1 tab PO Q12HR #20 tablet 08/13/18 [Augmentin 875-125] Allergies Allergy/AdvReac Type Severity Reaction Status Date / Time No Known Allergies Allergy Verified 08/13/18 15:23 Review of Systems ROS Statement: Those systems with pertinent positive or pertinent negative responses have been documented in the HPI. ROS Other: All systems not noted in ROS Statement are negative. Past Medical History Past Medical History: No Reported History Additional Past Medical History / Comment(s): mentally challenged-unsure of history History of Any Multi-Drug Resistant Organisms: None Reported Past Surgical History: No Surgical Hx Reported Additional Past Surgical History / Comment(s): cyst over eye removed Past Psychological History: ADD/ADHD Smoking Status: Current every day smoker Past Alcohol Use History: Occasional Past Drug Use History: Marijuana General Exam Limitations: no limitations General appearance: alert, in no apparent distress Head exam: Present: atraumatic, normocephalic, normal inspection Eye exam: Present: normal appearance, PERRL, EOMI. Absent: scleral icterus, conjunctival injection, periorbital swelling ENT exam: Present: normal exam, mucous membranes moist Neck exam: Present: normal inspection. Absent: tenderness, meningismus, lymphadenopathy Respiratory exam: Present: normal lung sounds bilaterally. Absent: respiratory distress, wheezes, rales, rhonchi, stridor Cardiovascular Exam: Present: regular rate, normal rhythm, normal heart sounds. Absent: systolic murmur, diastolic murmur, rubs, gallop, clicks GI/Abdominal exam: Present: soft, normal bowel sounds. Absent: distended, tenderness, guarding, rebound, rigid Extremities exam: Present: normal inspection, full ROM, normal capillary refill. Absent: tenderness, pedal edema, joint swelling, calf tenderness Back exam: Present: normal inspection Neurological exam: Present: alert, oriented X3, CN II-XII intact Psychiatric exam: Present: normal affect, normal mood Skin exam: Present: warm, dry, intact, normal color. Absent: rash Course Vital Signs 08/13/18 15:19 Temperature 98.2 F Pulse Rate 76 Respiratory 20 Rate Blood Pressure 132/86 O2 Sat by Pulse 100 Oximetry - Reevaluation(s) Reevaluation #1: 08/13/18 17:04 Medical record is reviewed Patient is in no acute distress feeling better Medical Decision Making - Medical Decision Making 33 male the ER for evaluation. Patient was sore throat, we'll treat with antibiotics test is negative x-rays are negative patient can be discharged home - Lab Data Lab Results 08/13/18 Range/Units 16:00 Group A Strep Rapid Negative (Negative) - Radiology Data Radiology results: report reviewed (Chest x-ray and soft tissue neck x-rays negative), image reviewed Disposition Clinical Impression: Pharyngitis, Acute bronchitis Disposition: HOME SELF-CARE Condition: Good Instructions: Acute Bronchitis (ED), Pharyngitis (ED) Prescriptions: Albuterol Sulfate [Proair Hfa] 1 - 2 puff INHALATION Q4H PRN #1 inhaler PRN Reason: Shortness Of Breath Amoxic-Pot Clav 875-125Mg [Augmentin 875-125] 1 tab PO Q12HR #20 tablet Is patient prescribed a controlled substance at d/c from ED?: No Referrals: India Zambrano MD [Primary Care Provider] - 1-2 days
[2018-08-13 17:23] VITALS: BP 138/70; PULSE 78; RESP 16; TEMP 97.9
== END 2018-08-13 17:22 | disposition home or self-care (01) ==
LOC: EC 15:01
DX: J20.9 Acute bronchitis, unspecified (principal); J02.9 Acute pharyngitis, unspecified; F17.200 Nicotine dependence, unspecified, uncomplicated; Z98.890 Other specified postprocedural states; Z79.899 Other long term (current) drug therapy
CPT/HCPCS: 94640; 87081; 87430; 70360; 71046; 99285; 96372; J1100

== ENCOUNTER 2018-08-31 11:11 | Observation (INO) | payer OTHER ==
[2018-08-31 12:00] VITALS: BP 110/71; PULSE 89; RESP 16; TEMP 97.9
[2018-08-31 12:38] LABS: Basophils % (A) 0 %; Eosinophils # (A) 0.1 k/uL (0-0.7); Eosinophils % (A) 2 %; HCT 43.5 % (39.0-53.0); HGB 15.3 gm/dL (13.0-17.5); Lymphocytes # (A) 1.4 k/uL (1.0-4.8); Lymphocytes % (A) 19 %; MCH 31.4 pg (25.0-35.0); MCHC 35.3 g/dL (31.0-37.0); Mean Platelet Volume 8.6; Monocytes # (A) 0.4 k/uL (0-1.0); Monocytes % (A) 6 %; Neutrophils # (A) 5.2 k/uL (1.3-7.7); Neutrophils % (A) 72 %; Platelet Count 133 k/uL (150-450); RBC 4.88 m/uL (4.30-5.90); WBC 7.2 k/uL (3.8-10.6)
--- NOTE | 2018-08-31 12:44 | ED ---
Abdominal Pain HPI - General Chief Complaint: Skin/Abscess/Foreign Body Stated Complaint: Abdominal "bump" Time Seen by Provider: 08/31/18 11:25 Source: patient, RN notes reviewed, old records reviewed Mode of arrival: ambulatory Limitations: no limitations - History of Present Illness Initial Comments: This is a 33-year-old male the ER for evaluation of some groin pain and swelling noticed to the left side of his lower abdomen. Patient denies prior history of same, patient states he was doing some heavy lifting over the weekend and he woke up today noticing the swelling in his groin. No prior history of similar issue, no prior surgical history. MD Complaint: abdominal pain, other -: hour(s) Location: LLQ Migration to: other Severity: mild Severity scale (1-10): 3 Quality: aching Consistency: constant Improves With: nothing Worsens With: nothing (Groin) - Related Data Home Medications Medication Instructions Recorded Confirmed Paliperidone Palmitate [Invega 78 mg IM Q28D 06/17/16 08/31/18 Sustenna] Allergies Allergy/AdvReac Type Severity Reaction Status Date / Time No Known Allergies Allergy Verified 08/31/18 11:36 Review of Systems ROS Statement: Those systems with pertinent positive or pertinent negative responses have been documented in the HPI. ROS Other: All systems not noted in ROS Statement are negative. Past Medical History Past Medical History: No Reported History Additional Past Medical History / Comment(s): mentally challenged-unsure of history History of Any Multi-Drug Resistant Organisms: None Reported Past Surgical History: No Surgical Hx Reported Additional Past Surgical History / Comment(s): cyst over eye removed Past Psychological History: ADD/ADHD Smoking Status: Current every day smoker Past Alcohol Use History: Occasional Past Drug Use History: Marijuana General Exam Limitations: no limitations General appearance: alert, in no apparent distress Head exam: Present: atraumatic, normocephalic, normal inspection Eye exam: Present: normal appearance, PERRL, EOMI. Absent: scleral icterus, conjunctival injection, periorbital swelling ENT exam: Present: normal exam, mucous membranes moist Neck exam: Present: normal inspection. Absent: tenderness, meningismus, lymphadenopathy Respiratory exam: Present: normal lung sounds bilaterally. Absent: respiratory distress, wheezes, rales, rhonchi, stridor Cardiovascular Exam: Present: regular rate, normal rhythm, normal heart sounds. Absent: systolic murmur, diastolic murmur, rubs, gallop, clicks GI/Abdominal exam: Present: soft, normal bowel sounds. Absent: distended, tenderness, guarding, rebound, rigid exam: Present: other (Significant mass left groin, soft) Extremities exam: Present: normal inspection, full ROM, normal capillary refill. Absent: tenderness, pedal edema, joint swelling, calf tenderness Back exam: Present: normal inspection Neurological exam: Present: alert, oriented X3, CN II-XII intact Psychiatric exam: Present: normal affect, normal mood Skin exam: Present: warm, dry, intact, normal color. Absent: rash Course Vital Signs 08/31/18 11:14 Temperature 97.9 F Pulse Rate 89 Respiratory 16 Rate Blood Pressure 110/71 O2 Sat by Pulse 97 Oximetry - Reevaluation(s) Reevaluation #1: 08/31/18 14:34 Medical record is reviewed Reevaluation #2: 08/31/18 14:[address] Beasley, will admit patient for evaluation Medical Decision Making - Medical Decision Making 33 male the ER for evaluation of jaw pain and groin lump, positive inguinal hernia, will not for surgical evaluation and treatment - Lab Data Result diagrams: 08/31/18 12:13 08/31/18 12:13 Lab Results 08/31/18 08/31/18 Range/Units 12:13 12:13 WBC 7.2 (3.8-10.6) k/uL RBC 4.88 (4.30-5.90) m/uL Hgb 15.3 (13.0-17.5) gm/dL Hct 43.5 (39.0-53.0) % MCV 89.0 (80.0-100.0) fL MCH 31.4 (25.0-35.0) pg MCHC 35.3 (31.0-37.0) g/dL RDW 13.0 (11.5-15.5) % Plt Count 133 L (150-450) k/uL Neutrophils % 72 % Lymphocytes % 19 % Monocytes % 6 % Eosinophils % 2 % Basophils % 0 % Neutrophils # 5.2 (1.3-7.7) k/uL Lymphocytes # 1.4 (1.0-4.8) k/uL Monocytes # 0.4 (0-1.0) k/uL Eosinophils # 0.1 (0-0.7) k/uL Basophils # 0.0 (0-0.2) k/uL Sodium 138 (137-145) mmol/L Potassium 4.7 (3.5-5.1) mmol/L Chloride 104 (98-107) mmol/L Carbon Dioxide 25 (22-30) mmol/L Anion Gap 9 mmol/L BUN 14 (9-20) mg/dL Creatinine 0.85 (0.66-1.25) mg/dL Est GFR (CKD-EPI)AfAm >90 (>60 ml/min/1.73 sqM) Est GFR (CKD-EPI)NonAf >90 (>60 ml/min/1.73 sqM) Glucose 92 (74-99) mg/dL Calcium 10.5 H (8.4-10.2) mg/dL Phosphorus 3.8 (2.5-4.5) mg/dL Magnesium 1.7 (1.6-2.3) mg/dL Total Bilirubin 0.3 (0.2-1.3) mg/dL AST 22 (17-59) U/L ALT 26 (21-72) U/L Alkaline Phosphatase 77 (38-126) U/L Total Protein 7.5 (6.3-8.2) g/dL Albumin 4.6 (3.5-5.0) g/dL Amylase 70 (30-110) U/L Lipase 63 (23-300) U/L - Radiology Data Radiology results: report reviewed (CT abdomen and pelvis positive for left inguinal hernia), image reviewed Disposition Clinical Impression: Inguinal hernia Disposition: ADMITTED IP TO THIS [facility] Condition: Good Is patient prescribed a controlled substance at d/c from ED?: No
[2018-08-31 12:47] LABS: ALT 26 U/L (21-72); AST 22 U/L (17-59); Albumin 4.6 g/dL (3.5-5.0); Alkaline Phosphatase 77 U/L (38-126); Amylase 70 U/L (30-110); Anion Gap 9 mmol/L; Blood Urea Nitrogen 14 mg/dL (9-20); Calcium 10.5 mg/dL (8.4-10.2); Carbon Dioxide 25 mmol/L (22-30); Chloride 104 mmol/L (98-107); Glucose 92 mg/dL (74-99); Lipase 63 U/L (23-300); Magnesium 1.7 mg/dL (1.6-2.3); Phosphorus 3.8 mg/dL (2.5-4.5); Potassium 4.7 mmol/L (3.5-5.1); Sodium 138 mmol/L (137-145); Total Bilirubin 0.3 mg/dL (0.2-1.3); Total Protein 7.5 g/dL (6.3-8.2)
--- NOTE | 2018-08-31 13:40 | CT ---
EXAMINATION TYPE: CT abdomen pelvis w con DATE OF EXAM: 08/31/2018 COMPARISON: 03/28/2015 HISTORY: 33-year-old male with left groin lump TECHNIQUE: Contiguous axial scanning of the abdomen and pelvis following administration of 100 ml Iso alicia 300 IV contrast. Delayed images through the kidneys and coronal/sagittal reconstructions perform ed. CT DLP: 466.3 mGycm Automated exposure control for dose reduction was used. FINDINGS: Heart normal size without pericardial effusion. Lung bases clear without pleural effusion. No focal liver lesion or biliary ductal dilatation. Portal venous system is patent. Gallbladder, adrenal glands, spleen, and pancreas within normal limits. 7 mm and 3 mm nonobstructive right renal calculi. 4 mm nonobstructive left renal calculus. Symmetric uptake and excretion of contrast from both kidneys. No dilated small bowel, free fluid, or free air. However, prominent fluid-filled small bowel loops ar e present in the right side of the abdomen. Mild stool in the right side of the colon. No pericolonic inflammatory changes. Bladder distended. Pelvic phleboliths. Trace amount of nonspecific free fluid in the pelvis, axial im age 58. No pelvic lymphadenopathy. Palpable marker placed along the left inguinal region. At this loc ation, there is a moderate-sized fatty indirect inguinal hernia which extends just beyond the superfi cial inguinal ring spanning 6.5 cm measuring 1.7 cm thick. Bones: Right L5 hemisacralization. No osseous destructive process. IMPRESSION: 1. LEFT GROIN LUMP CORRESPONDS TO A MODERATE-SIZED FATTY INDIRECT INGUINAL HERNIA. THE HERNIA EXTENDS JUST BEYOND THE SUPERFICIAL INGUINAL RING. 2. NONOBSTRUCTIVE BILATERAL RENAL CALCULI MEASURING UP TO 7 MM. 3. TRACE PELVIC FREE FLUID, NONSPECIFIC. 4. PROMINENT FLUID-FILLED SMALL BOWEL LOOPS IN THE RIGHT SIDE OF THE ABDOMEN. CORRELATE TO EXCLUDE EN TERITIS.
[2018-08-31] MEDS ORDERED: SODIUM CHLORIDE 0.9% 1,000 ML IV ONE (14:02)
== END 2018-08-31 15:15 | disposition home or self-care (01) ==
LOC: EC 11:11 → 1SOBS 14:11
PROVIDERS: ADMIT Surgery; ATTEND Surgery
DX: K40.90 Unilateral inguinal hernia, without obstruction or gangrene, not specified as recurrent (principal); F90.9 Attention-deficit hyperactivity disorder, unspecified type; F79 Unspecified intellectual disabilities; F17.200 Nicotine dependence, unspecified, uncomplicated; Z79.899 Other long term (current) drug therapy
CPT/HCPCS: 99285; 36415; 80053; 82150; 83690; 83735; 84100; 85025; 74177; G0378; Q9967

== ENCOUNTER → 2018-11-30 | Outpatient (CLI) | payer OTHER ==
[2018-11-30 18:44] LABS: Albumin 4.5 g/dL (3.80-4.90); Albumin/Globulin Ratio 2.05 (1.60-3.17); Anion Gap 5.1 mmol/L (4.00-12.00); Calcium 9.9 mg/dL (8.7-10.3); Carbon Dioxide 25.9 mmol/L (21.6-31.8); Globulin 2.2 g/dL (1.6-3.3); LDL Cholesterol,Calculated 89.2 mg/dL (0.0-131.0); Potassium 4.7 mmol/L (3.5-5.5); Total Bilirubin 0.3 mg/dL (0.3-1.2); Total Protein 6.7 g/dL (6.2-8.2); VLDL Calculation 11.8 mg/dL (5.00-40.00)
[2018-11-30 18:52] LABS: T4, Free (Free Thyroxine) 1.2 ng/dL (0.80-1.80)
[2018-11-30 21:12] LABS: Hemoglobin A1C 5.3 % (4.0-6.0)
== END ==
LOC: LABWHC1 10:37
PROVIDERS: ATTEND Physician Assistant
DX: Z51.81 Encounter for therapeutic drug level monitoring (principal); Z79.899 Other long term (current) drug therapy
CPT/HCPCS: 36415; 80053; 80061; 83036; 84439; 84443

== ENCOUNTER 2019-03-01 08:12 | Emergency (ER) | payer OTHER ==
[2019-03-01 08:26] VITALS: BP 130/74; PULSE 83; RESP 18; TEMP 98.4
[2019-03-01] MEDS ORDERED: KETOROLAC 60 MG/2 ML VIAL IM STA (09:03)
--- NOTE | 2019-03-01 09:06 | ED ---
General Adult HPI - General Chief complaint: Recheck/Abnormal Lab/Rx Stated complaint: Rib pain Time Seen by Provider: 03/01/19 08:25 Source: patient, RN notes reviewed Mode of arrival: ambulatory Limitations: no limitations - History of Present Illness Initial comments: This is a 33-year-old male who presents emergency Department stating he was wrestling around with somebody couple days ago and he hurt his right lateral rib area. Patient states is no difficulty breathing or shortness of breath. Patient denies any abdominal pain. Patient states it hurts when he touches the area or takes a deep breath. Patient denies any other injury or pain. Patient has not taken any medicines for the pain. - Related Data Home Medications Medication Instructions Recorded Confirmed Paliperidone Palmitate [Invega 78 mg IM Q28D 06/17/16 08/31/18 Sustenna] Previous Rx's Medication Instructions Recorded Ibuprofen [Motrin] 600 mg PO Q6HR PRN #20 tab 03/01/19 Allergies Allergy/AdvReac Type Severity Reaction Status Date / Time No Known Allergies Allergy Verified 03/01/19 08:22 Review of Systems ROS Statement: Those systems with pertinent positive or pertinent negative responses have been documented in the HPI. ROS Other: All systems not noted in ROS Statement are negative. Past Medical History Past Medical History: No Reported History Additional Past Medical History / Comment(s): mentally challenged-unsure of history History of Any Multi-Drug Resistant Organisms: None Reported Past Surgical History: No Surgical Hx Reported Additional Past Surgical History / Comment(s): cyst over eye removed Past Psychological History: ADD/ADHD Smoking Status: Current every day smoker Past Alcohol Use History: Occasional Past Drug Use History: Marijuana General Exam - General Exam Comments Initial Comments: GENERAL: Patient is well-developed and well-nourished. Patient is nontoxic and well- hydrated and is in no acute distress. ENT: Neck is soft and supple. No significant lymphadenopathy is noted. Oropharynx is clear. Moist mucous membranes. Neck has full range of motion without eliciting any pain. EYES: The sclera were anicteric and conjunctiva were pink and moist. Extraocular movements were intact and pupils were equal round and reactive to light. Eyeli ds were unremarkable. PULMONARY: Unlabored respirations. Good breath sounds bilaterally. No audible rales rhonchi or wheezing was noted. CARDIOVASCULAR: There is a regular rate and rhythm without any murmurs gallops or rubs. Lateral right rib cage is tender at about rib 10. There is no crepitus. ABDOMEN: Soft and nontender with normal bowel sounds. SKIN: Skin is clear with no lesions or rashes and otherwise unremarkable. NEUROLOGIC: Patient is alert and oriented x3. Cranial nerves II through XII are grossly intact. Motor and sensory are also intact. Normal speech, volume and content. Symmetrical smile. MUSCULOSKELETAL: Normal extremities with adequate strength and full range of motion. LYMPHATICS: No significant lymphadenopathy is noted PSYCHIATRIC: Normal psychiatric evaluation. Limitations: no limitations Course Vital Signs 03/01/19 08:22 Temperature 98.4 F Pulse Rate 83 Respiratory 18 Rate Blood Pressure 130/74 O2 Sat by Pulse 99 Oximetry Medical Decision Making - Medical Decision Making Chest x-ray shows no acute abnormality. Toradol to help the patient. Disposition Clinical Impression: Chest wall pain Disposition: HOME SELF-CARE Condition: Good Instructions (If sedation given, give patient instructions): Chest Wall Pain (ED) Prescriptions: Ibuprofen [Motrin] 600 mg PO Q6HR PRN #20 tab PRN Reason: For pain Is patient prescribed a controlled substance at d/c from ED?: No Referrals: India Zambrano MD [Primary Care Provider] - 1-2 days Time of Disposition: 09:32
--- NOTE | 2019-03-01 09:25 | XR ---
EXAMINATION TYPE: XR chest 2V DATE OF EXAM: 03/01/2019 COMPARISON: 08/13/2018 INDICATION: Right-sided axillary rib pain TECHNIQUE: Frontal and lateral views of the chest are obtained. FINDINGS: The heart size is normal. The pulmonary vasculature is normal. The lungs are clear. No pneumothorax is evident. Osseous structures appear intact. IMPRESSION: 1. No acute pulmonary process or acute posttraumatic change.
== END 2019-03-01 10:10 | disposition home or self-care (01) ==
LOC: EC 08:12
DX: R07.89 Other chest pain (principal); F17.200 Nicotine dependence, unspecified, uncomplicated; Z79.899 Other long term (current) drug therapy; Y93.83 Activity, rough housing and horseplay
CPT/HCPCS: 71046; 99283; 96372; J1885

== ENCOUNTER 2019-05-20 14:41 | Emergency (ER) | payer OTHER ==
[2019-05-20 15:00] VITALS: BP 138/73; PULSE 78; RESP 18; TEMP 98.7
[2019-05-20] MEDS ORDERED: LIDOCAINE 1% INJ 10MG/ML (20 ML MDV) SQ ONE (15:02)
--- NOTE | 2019-05-20 15:08 | ED ---
Wound/Laceration HPI - General Chief Complaint: Wound/Laceration Stated Complaint: Facial laceration Time Seen by Provider: 05/20/19 15:02 Source: patient Mode of arrival: ambulatory Limitations: no limitations - History of Present Illness Initial Comments: 34-year-old male presenting for laceration of the face. Patient states he was in a car when he got up he actually his head on an open door. Patient states to cause a laceration above his right eyebrow. Patient denies loss of consciousness denies headache dizziness nausea vomiting. Patient denies any neck pain. Patient states he applied a bandage applied home his girlfriend evaluated the laceration thought he might need sutures a presents to the ER for evaluation. Patient states the laceration occurred just a few hours prior to arrival. Patient states his tetanus up-to-date. He denies any other complaints. He states bleeding is controlled patient has visual changes which of the upper or lower extremities or any other signs or symptoms. Patient appears well upon arrival patient stepfather is at bedside - Related Data Home Medications Medication Instructions Recorded Confirmed Paliperidone Palmitate [Invega 78 mg IM Q28D 06/17/16 08/31/18 Sustenna] Previous Rx's Medication Instructions Recorded Ibuprofen [Motrin] 600 mg PO Q6HR PRN #20 tab 03/01/19 Allergies Allergy/AdvReac Type Severity Reaction Status Date / Time No Known Allergies Allergy Verified 05/20/19 15:00 Review of Systems ROS Statement: Those systems with pertinent positive or pertinent negative responses have been documented in the HPI. ROS Other: All systems not noted in ROS Statement are negative. Past Medical History Past Medical History: No Reported History Additional Past Medical History / Comment(s): mentally challenged-unsure of history History of Any Multi-Drug Resistant Organisms: None Reported Past Surgical History: No Surgical Hx Reported Additional Past Surgical History / Comment(s): cyst over eye removed Past Psychological History: ADD/ADHD Smoking Status: Current every day smoker Past Alcohol Use History: Occasional Past Drug Use History: Marijuana General Exam - General Exam Comments Initial Comments: General: The patient is awake and alert, in no distress, and does not appear acutely ill. Eye: +3 mm pupils are equal, round and reactive to light, extra-ocular movements are intact. No nystagmus. There is normal conjunctiva bilaterally. No signs of icterus. Ears, nose, mouth and throat: There are moist mucous membranes and no oral lesions. Neck: The neck is supple, there is no tenderness or JVD. No midline tenderness to palpation of the c-spine Cardiovascular: There is a regular rate and rhythm. No murmur, rub or gallop is appreciated. Respiratory: Lungs are clear to auscultation, respirations are non-labored, breath sounds are equal. No wheezes, stridor, rales, or rhonchi. Musculoskeletal: Normal ROM, no tenderness. Strength 5/5. Sensation intact. Radial pulses equal bilaterally 2+. Neurological: A&O x 3. CN II-XII intact, There are no obvious motor or sensory deficits. Coordination appears grossly intact. Speech is normal. Skin: Skin is warm and dry and no rashes. 1.5cm laceration of the foreheard that is linear aside from perpendicular 1/4cm midway through the linear laceration towards the left. Psychiatric: Cooperative, appropriate mood & affect, normal judgment. Limitations: no limitations Course Vital Signs 05/20/19 14:58 Temperature 98.7 F Pulse Rate 78 Respiratory 18 Rate Blood Pressure 138/73 O2 Sat by Pulse 99 Oximetry Procedures - Laceration Laceration #1 Consent Obtained: verbal consent Indication: laceration Site: face Size (cm): 2 Description: irregular Depth: simple, single layer Anesthetic Used: lidocaine 1% Anesthesia Technique: local infiltration Amount (mls): 2 Pre-repair: wound explored, irrigated extensively, deep structures intact Type of Sutures: nylon Size of Sutures: 6-0 Number of Sutures: 4 Technique: simple, interrupted Patient Tolerated Procedure: well, no complications Medical Decision Making - Medical Decision Making Well[age]aring [age] male presenting today for chief complaint of facial laceration. Denies loss of consciousness. Denies headache denies dizziness. No focal neurological deficits. After irrigation and exploration the wound was closed using 4 6. 0 nylon sutures. Return parameters were discussed at length patient including signs of infection. Patient appears well but time will be discharged, he is agreeable with care plan and verbalized understanding of return parameters. Disposition Clinical Impression: Facial laceration Disposition: HOME SELF-CARE Condition: Good Instructions (If sedation given, give patient instructions): Care For Your Stitches (ED), Facial Laceration (ED) Additional Instructions: Please use medication as discussed. Please follow-up here in the ER for suture removal in 5 days, 05/25/19. Please return to emergency room if the symptoms increase or worsen or for any other concerns. Is patient prescribed a controlled substance at d/c from ED?: No Referrals: India Zambrano MD [Primary Care Provider] - 1-2 days Time of Disposition: 15:22
== END 2019-05-20 15:30 | disposition home or self-care (01) ==
LOC: EC 14:41
DX: S01.81XA Laceration without foreign body of other part of head, initial encounter (principal); F17.200 Nicotine dependence, unspecified, uncomplicated
CPT/HCPCS: 99282; 12011; J2001

== ENCOUNTER 2019-09-17 10:21 | Emergency (ER) | payer OTHER ==
[2019-09-17 10:25] VITALS: BP 132/85; PULSE 81; RESP 20; TEMP 97.4
--- NOTE | 2019-09-17 11:00 | ED ---
Skin/Abscess/FB HPI - General Chief complaint: Skin/Abscess/Foreign Body Stated complaint: Abscess behind ear Time Seen by Provider: 09/17/19 10:27 Source: patient, RN notes reviewed, old records reviewed Mode of arrival: ambulatory Limitations: no limitations - History of Present Illness Initial comments: Physical 34-year-old male who presents emergency room today with an abscess behind his right earlobe. Patient reports that he's noticed it for the this for the past 2 days. Denies any significant fevers. He reports that he has no trouble hearing. Patient states that he has had abscesses in the past. Patient denies any medications or ALLERGIES. Patient states that he's had no other complaints. - Related Data Home Medications Medication Instructions Recorded Confirmed Paliperidone Palmitate [Invega 78 mg IM Q28D 06/17/16 08/31/18 Sustenna] Previous Rx's Medication Instructions Recorded Ibuprofen [Motrin] 600 mg PO Q6HR PRN #20 tab 03/01/19 Mupirocin 2% Oint [Bactroban 2% 1 applic TOPICAL TID #60 gm 09/17/19 Oint] Sulfamethoxazole/Trimethoprim 1 each PO BID #20 tablet 09/17/19 [Bactrim DS 800-160 mg] Allergies Allergy/AdvReac Type Severity Reaction Status Date / Time No Known Allergies Allergy Verified 09/17/19 10:25 Review of Systems ROS Statement: Those systems with pertinent positive or pertinent negative responses have been documented in the HPI. ROS Other: All systems not noted in ROS Statement are negative. Past Medical History Past Medical History: No Reported History Additional Past Medical History / Comment(s): mentally challenged-unsure of history History of Any Multi-Drug Resistant Organisms: None Reported Past Surgical History: No Surgical Hx Reported Additional Past Surgical History / Comment(s): cyst over eye removed Past Psychological History: ADD/ADHD Smoking Status: Current every day smoker Past Alcohol Use History: Occasional Past Drug Use History: Marijuana General Exam - General Exam Comments Initial Comments: pleasant 34-year-old male. Alert and oriented 3. No distress. Limitations: no limitations Head exam: Present: atraumatic, normocephalic, normal inspection Eye exam: Present: normal appearance, PERRL, EOMI. Absent: scleral icterus, conjunctival injection, periorbital swelling ENT exam: Present: normal exam, mucous membranes moist, other (Patient has a 2 cm abscess behind the right earlobe. The area is fluctuant. Multiple blackheads around the area.) Neck exam: Present: normal inspection. Absent: tenderness, meningismus, lymphadenopathy Respiratory exam: Present: normal lung sounds bilaterally. Absent: respiratory distress, wheezes, rales, rhonchi, stridor Cardiovascular Exam: Present: regular rate, normal rhythm, normal heart sounds. Absent: systolic murmur, diastolic murmur, rubs, gallop, clicks GI/Abdominal exam: Present: soft, normal bowel sounds. Absent: distended, tenderness, guarding, rebound, rigid Extremities exam: Present: normal inspection, full ROM, normal capillary refill. Absent: tenderness, pedal edema, joint swelling, calf tenderness Back exam: Present: normal inspection Neurological exam: Present: alert, oriented X3, CN II-XII intact Psychiatric exam: Present: normal affect Skin exam: Present: warm, dry, intact, normal color. Absent: rash Course Vital Signs 09/17/19 10:23 Temperature 97.4 F L Pulse Rate 81 Respiratory 20 Rate Blood Pressure 132/85 O2 Sat by Pulse 99 Oximetry Procedures - Incision & Drainage Site: other (behind the right ear.) Size (cm): 2 I&D Cleaning Method: Chloroprep, Alcohol Wipe Sterile Field Used?: Yes Scalpel Used: #11 I&D Drainage Obtained: Pus, Blood Packing: Other (area to small to pack) Culture Obtained?: Yes Patient Tolerated Procedure: well, no complications Medical Decision Making - Medical Decision Making 4-year-old male presents emergency department today with an abscess on the right earlobe. The wound was incised and drained. Approximately 3-4 mL of purulent green fluid was removed. There is some surrounding extra skin tissue there. Discussed he can follow-up with dermatology to have this removed. I will put the Patient on antibiotics of doxycycline and mupirocin to apply over. Discussed the importance of showering and keep skin clean. Patient was advised to follow up with his primary care physician. All questions answered. Disposition Clinical Impression: Abscess, earlobe Disposition: HOME SELF-CARE Condition: Good Instructions (If sedation given, give patient instructions): Abscess Incision and Drainage (ED) Additional Instructions: Please use medication as discussed. Warm compresses over area. Shower daily. Please follow up with family doctor if symptoms have not improved over the next two days. Please return to the emergency room if your symptoms increase or worsen or for any other concerns. Prescriptions: Sulfamethoxazole/Trimethoprim [Bactrim DS 800-160 mg] 1 each PO BID #20 tablet Mupirocin 2% Oint [Bactroban 2% Oint] 1 applic TOPICAL TID #60 gm Is patient prescribed a controlled substance at d/c from ED?: No Referrals: India Zambrano MD [Primary Care Provider] - 1-2 days Time of Disposition: 10:58
== END 2019-09-17 11:36 | disposition home or self-care (01) ==
LOC: EC 10:21
DX: H60.01 Abscess of right external ear (principal); F17.200 Nicotine dependence, unspecified, uncomplicated
CPT/HCPCS: 10060; 87070; 87205; 99283

== ENCOUNTER 2020-03-20 19:45 | Emergency (ER) | payer OTHER ==
[2020-03-20 19:50] VITALS: BP 137/84; PULSE 98; RESP 18; TEMP 98.1
[2020-03-20] MEDS ORDERED: DIPH,PERTUS(ACELL)TETVAC-LF 0.5 ML VIAL IM ONE (20:12)
[2020-03-20] MEDS ORDERED: LIDOCAINE 1% INJ 10MG/ML (20 ML MDV) SQ ONE ×2 (20:12→20:28)
--- NOTE | 2020-03-20 20:25 | ED ---
Wound/Laceration HPI - General Chief Complaint: Wound/Laceration Stated Complaint: Finger Lac Source: patient Mode of arrival: ambulatory Limitations: no limitations - History of Present Illness Initial Comments: Patient is a 34-year-old male presenting to the emergency Department with a chief complaint of a laceration. Patient states he lacerated his right second digit with a glass bottle. Patient reports some active bleeding which is since resolved. States his tetanus is up-to-date. Denies any numbness or tingling. States he has full range of motion of finger. Denies taking medications alleviate the symptoms. - Related Data Home Medications Medication Instructions Recorded Confirmed Paliperidone Palmitate [Invega 78 mg IM Q28D 06/17/16 08/31/18 Sustenna] Previous Rx's Medication Instructions Recorded Ibuprofen [Motrin] 600 mg PO Q6HR PRN #20 tab 03/01/19 Mupirocin 2% Oint [Bactroban 2% 1 applic TOPICAL TID #60 gm 09/17/19 Oint] Sulfamethoxazole/Trimethoprim 1 each PO BID #20 tablet 09/17/19 [Bactrim DS 800-160 mg] Allergies Allergy/AdvReac Type Severity Reaction Status Date / Time No Known Allergies Allergy Verified 03/20/20 19:50 Review of Systems ROS Statement: Those systems with pertinent positive or pertinent negative responses have been documented in the HPI. ROS Other: All systems not noted in ROS Statement are negative. Past Medical History Past Medical History: No Reported History Additional Past Medical History / Comment(s): mentally challenged-unsure of history History of Any Multi-Drug Resistant Organisms: None Reported Past Surgical History: No Surgical Hx Reported Additional Past Surgical History / Comment(s): cyst over eye removed Past Psychological History: ADD/ADHD Smoking Status: Current every day smoker Past Alcohol Use History: Occasional Past Drug Use History: Marijuana General Exam Limitations: no limitations General appearance: alert, in no apparent distress Head exam: Present: atraumatic, normocephalic, normal inspection Eye exam: Present: normal appearance, PERRL, EOMI Pupils: Present: normal accommodation ENT exam: Present: normal exam, normal oropharynx, mucous membranes moist Neck exam: Present: normal inspection, full ROM Respiratory exam: Present: normal lung sounds bilaterally. Absent: respiratory distress, wheezes Cardiovascular Exam: Present: regular rate, normal rhythm, normal heart sounds Extremities exam: Present: full ROM, normal capillary refill, other (+2 ulnar radial pulses bilaterally.). Absent: normal inspection (Small laceration with a flap formation. Laceration measuring approximately 1 cm. Appears to be superficial with no tenderness bone exposure.), tenderness Back exam: Present: normal inspection, full ROM Neurological exam: Present: alert, oriented X3 Psychiatric exam: Present: normal affect, normal mood Skin exam: Present: warm, dry, intact, normal color Course Vital Signs 03/20/20 19:47 Temperature 98.1 F Pulse Rate 98 Respiratory 18 Rate Blood Pressure 137/84 O2 Sat by Pulse 97 Oximetry Procedures - Laceration Laceration #1 Consent Obtained: verbal consent Indication: laceration Site: other (Right second digit) Size (cm): 1 Description: flap Depth: simple, single layer Sedation/Analgesia: none Anesthetic Used: lidocaine 1% Anesthesia Technique: local infiltration Amount (mls): 3 Pre-repair: irrigated extensively, deep structures intact Type of Sutures: nylon Size of Sutures: 4-0 Number of Sutures: 2 Technique: simple, interrupted Patient Tolerated Procedure: well, no complications Medical Decision Making - Medical Decision Making Patient a 34-year-old male presenting to emergency Department with a chief complaint of a laceration. Tetanus up-to-date. Laceration site was repaired with 2 sutures. Patient neurovascularly intact in the right second digit. Return parameters discussed the patient was saying agreeable. Advised to return in 7 days for suture removal. Case discussed with physician. Disposition Clinical Impression: Laceration Disposition: HOME SELF-CARE Condition: Stable Instructions (If sedation given, give patient instructions): Care For Your Stitches (DC), Laceration (DC) Additional Instructions: Return to emergency department in 7 days for suture removal. Is patient prescribed a controlled substance at d/c from ED?: No Referrals: India Zambrano MD [Primary Care Provider] - 1-2 days Time of Disposition: 20:24
== END 2020-03-20 20:45 | disposition home or self-care (01) ==
LOC: EC 19:45
DX: S61.210A Laceration without foreign body of right index finger without damage to nail, initial encounter (principal); F17.200 Nicotine dependence, unspecified, uncomplicated; W25.XXXA Contact with sharp glass, initial encounter
CPT/HCPCS: 99282; 12001; J2001

== ENCOUNTER 2020-07-13 14:02 | Emergency (ER) | payer OTHER ==
[2020-07-13 14:24] VITALS: RESP 18
--- NOTE | 2020-07-13 14:48 | ED ---
General Adult HPI - General Chief complaint: Chest Pain Stated complaint: Chest Pain Time Seen by Provider: 07/13/20 14:29 Source: family Mode of arrival: ambulatory Limitations: no limitations - History of Present Illness Initial comments: Patient is a 35-year-old male presenting to the emergency department complaints of left sided lateral chest discomfort that started 2 days ago. Patient states she was lifting heavy objects over an approximate 5 foot fence for 2 days and a row. Patient noticed a bruise on the left side of his chest and has been tender since. He states nothing fell onto his chest but ever since he's been lifting these heavy objects, the pain has been increasing. He denies any difficulty breathing, wheezing, fever, chills. Denies any cough. He has no further complaints at this time. Upon arrival to the ER his vital signs are stable. - Related Data Home Medications Medication Instructions Recorded Confirmed Paliperidone Palmitate [Invega 78 mg IM Q28D 06/17/16 08/31/18 Sustenna] Previous Rx's Medication Instructions Recorded Ibuprofen [Motrin] 600 mg PO Q6HR PRN #20 tab 03/01/19 Mupirocin 2% Oint [Bactroban 2% 1 applic TOPICAL TID #60 gm 09/17/19 Oint] Sulfamethoxazole/Trimethoprim 1 each PO BID #20 tablet 09/17/19 [Bactrim DS 800-160 mg] Allergies Allergy/AdvReac Type Severity Reaction Status Date / Time No Known Allergies Allergy Verified 07/13/20 14:23 Review of Systems ROS Statement: Those systems with pertinent positive or pertinent negative responses have been documented in the HPI. ROS Other: All systems not noted in ROS Statement are negative. Past Medical History Past Medical History: No Reported History Additional Past Medical History / Comment(s): mentally challenged History of Any Multi-Drug Resistant Organisms: None Reported Past Surgical History: No Surgical Hx Reported Additional Past Surgical History / Comment(s): cyst over eye removed Past Psychological History: ADD/ADHD Smoking Status: Current every day smoker Past Alcohol Use History: Occasional Past Drug Use History: Marijuana General Exam - General Exam Comments Initial Comments: GENERAL: Patient is well-developed and well-nourished. Patient is nontoxic and in no acute distress. HEAD: Atraumatic, normocephalic. EYES: Pupils equal round and reactive to light, extraocular movements intact, sclera anicteric, conjunctiva are normal. Eyelids were unremarkable. ENT: TMs normal, nares patent, oropharynx clear without exudates. Moist mucous membranes. NECK: Normal range of motion, supple without lymphadenopathy or JVD. LUNGS: Unlabored respirations. Breath sounds clear to auscultation bilaterally and equal. No wheezes rales or rhonchi. HEART: Regular rate and rhythm without murmurs, rubs or gallops. Patient has some [id number]-ji-czhjeajd tenderness on the left lateral ribs, there is a small bruise present as well. ABDOMEN: Soft, nontender, normoactive bowel sounds. No guarding, no rebound. No masses appreciated. : Deferred MUSCULOSKELETAL: Normal extremities with adequate strength and normal range of motion, no pitting or edema. No clubbing or cyanosis. NEUROLOGICAL: Patient is alert and oriented x 3. Motor and sensory are also intact. Cranial nerves II through XII grossly intact. Symmetrical smile. Normal speech, normal gait. PSYCH: Normal mood, normal affect. SKIN: Warm, Dry, normal turgor, no rashes or lesions noted. Limitations: no limitations Course Vital Signs 07/13/20 14:19 Temperature 97.0 F L Pulse Rate 74 Respiratory 18 Rate Blood Pressure 125/65 O2 Sat by Pulse 98 Oximetry Medical Decision Making - Medical Decision Making Patient is a 35-year-old male presenting for a left-sided lateral rib pain after lifting heavy objects over a tall fence the last 2 days. Does have some mild bruising present on the left side of his ribs, tenderness of palpation. Chest x-ray and rib x-rays revealed no acute abnormalities. I discussed with patient this is most likely a rib contusion. Recommended ibuprofen and alternate with Tylenol for discomfort. He is stable for discharge. He is in agreement with this plan of care. Return parameters were discussed with the patient he verbalizes understanding. Case discussed with Dr. Heaton. Disposition Clinical Impression: Contusion of rib on left side Disposition: HOME SELF-CARE Condition: Stable Instructions (If sedation given, give patient instructions): Rib Contusion (ED) Additional Instructions: Please return to the Emergency Department if symptoms worsen or any other concerns. Take ibuprofen and alternate with Tylenol for discomfort. May also apply ice to the area. Is patient prescribed a controlled substance at d/c from ED?: No Referrals: India Zambrano MD [Primary Care Provider] - 1-2 days
--- NOTE | 2020-07-13 15:06 | XR ---
EXAMINATION TYPE: XR ribs LT w pa chest xray DATE OF EXAM: 07/13/2020 COMPARISON: 03/01/2019 HISTORY: Pain, bruising left side TECHNIQUE: Frontal chest and 2 views left RIBS FINDINGS: Heart size is normal. Pulmonary vasculature is normal. Lungs are clear. No pneumothorax is evident. No displaced rib fractures are evident. Note is made of a right renal stone. IMPRESSION: 1. No acute left rib abnormalities 2. Right renal stone
[2020-07-13 15:55] VITALS: BP 128/70; PULSE 82; TEMP 98.3
== END 2020-07-13 15:55 | disposition home or self-care (01) ==
LOC: EC 14:02
DX: S20.212A Contusion of left front wall of thorax, initial encounter (principal); F17.200 Nicotine dependence, unspecified, uncomplicated; Z79.899 Other long term (current) drug therapy; X50.0XXA Overexertion from strenuous movement or load, initial encounter
CPT/HCPCS: 99283

== ENCOUNTER 2020-09-21 20:23 | Emergency (ER) | payer OTHER ==
[2020-09-21] MEDS ORDERED: CARBAMIDE PEROXIDE 6.5% DROPS 15 ML BTL LEFT EAR STA (20:34)
--- NOTE | 2020-09-21 20:51 | ED ---
General Adult HPI - General Chief complaint: ENT Stated complaint: Ear Pain Time Seen by Provider: 09/21/20 20:29 Source: patient Mode of arrival: ambulatory Limitations: no limitations - History of Present Illness Initial comments: 35-year-old male patient presents to the emergency department today for evaluation of decreased hearing and discomfort to the left ear. Patient states that he believes he may have wax buildup and may need his ears flushed. He denies any fever or chills. Denies any drainage from the ear. Denies any significant pain. Denies any recent upper respiratory infection. - Related Data Home Medications Medication Instructions Recorded Confirmed OXcarbazepine [Trileptal] 150 mg PO BID 09/21/20 09/21/20 Paliperidone Palmitate [Invega 117 mg INJ Q28D 09/21/20 09/21/20 Sustenna] Allergies Allergy/AdvReac Type Severity Reaction Status Date / Time No Known Allergies Allergy Verified 09/21/20 20:56 Review of Systems ROS Statement: Those systems with pertinent positive or pertinent negative responses have been documented in the HPI. ROS Other: All systems not noted in ROS Statement are negative. Past Medical History Past Medical History: No Reported History Additional Past Medical History / Comment(s): mentally challenged History of Any Multi-Drug Resistant Organisms: None Reported Past Surgical History: No Surgical Hx Reported Additional Past Surgical History / Comment(s): cyst over eye removed Past Psychological History: ADD/ADHD Smoking Status: Current every day smoker Past Alcohol Use History: Occasional Past Drug Use History: Marijuana General Exam Limitations: no limitations General appearance: alert, in no apparent distress, other (This is a well-deve loped, well-nourished adult male patient in no acute distress. Vital signs upon presentation are temperature 98.8F, pulse 78, respirations 18, blood pressure 133/72, pulse ox 98% on room air.) Eye exam: Present: normal appearance, PERRL, EOMI. Absent: scleral icterus, conjunctival injection, periorbital swelling ENT exam: Present: normal exam, normal oropharynx, mucous membranes moist, other (There is bilateral cerumen impaction). Absent: TM's normal bilaterally Respiratory exam: Present: normal lung sounds bilaterally. Absent: respiratory distress, wheezes, rales, rhonchi, stridor Cardiovascular Exam: Present: regular rate, normal rhythm, normal heart sounds. Absent: systolic murmur, diastolic murmur, rubs, gallop, clicks Neurological exam: Present: alert, oriented X3, CN II-XII intact Psychiatric exam: Present: normal affect, normal mood Skin exam: Present: warm, dry, intact, normal color. Absent: rash Course Vital Signs 09/21/20 09/21/20 20:25 21:24 Temperature 98.8 F 98.3 F Pulse Rate 78 70 Respiratory 18 20 Rate Blood Pressure 133/72 138/93 O2 Sat by Pulse 98 99 Oximetry Medical Decision Making - Medical Decision Making 35-year-old male patient presented to the emergency department today for evaluation of decreased hearing and discomfort to the left ear. Physical examination did reveal Ostermann impaction to the left ear. Debrox drops were instilled and then nursing staff did irrigate the ear with successful release of the impaction. Reevaluation did reveal some mild canal, but normal tympanic membrane. Patient does report improved hearing. To discharge and follow up with his primary care physician for recheck in 1-2 days. Return parameters were discussed in detail. He verbalizes understanding and agrees with this plan. Disposition Clinical Impression: Cerumen impaction Disposition: HOME SELF-CARE Condition: Good Instructions (If sedation given, give patient instructions): Cerumen Impaction (ED) Additional Instructions: Use drops 1-2 drops per day to prevent buildup of wax. Follow-up through primary care physician for recheck in 1-2 days. Return to the emergency department for any new, worsening, or concerning symptoms. Is patient prescribed a controlled substance at d/c from ED?: No Referrals: India Zambrano MD [Primary Care Provider] - 1-2 days Time of Disposition: 21:08
[2020-09-21 21:30] VITALS: BP 138/93; PULSE 70; RESP 20; TEMP 98.3
== END 2020-09-21 21:31 | disposition home or self-care (01) ==
LOC: EC 20:23
DX: H61.22 Impacted cerumen, left ear (principal); F17.200 Nicotine dependence, unspecified, uncomplicated; F79 Unspecified intellectual disabilities
CPT/HCPCS: 99282

== ENCOUNTER → 2020-10-26 | Outpatient (CLI) | payer OTHER ==
[2020-10-26 11:34] LABS: Basophils % (A) 0 %; Eosinophils # (A) 0.1 k/uL (0-0.7); Eosinophils % (A) 2 %; HCT 46.4 % (39.0-53.0); HGB 15.3 gm/dL (13.0-17.5); Lymphocytes # (A) 1.9 k/uL (1.0-4.8); Lymphocytes % (A) 29 %; MCH 29.8 pg (25.0-35.0); MCHC 33.1 g/dL (31.0-37.0); MCV 90.1 fL (80.0-100.0); Mean Platelet Volume 8.3; Monocytes # (A) 0.4 k/uL (0-1.0); Monocytes % (A) 7 %; Neutrophils # (A) 3.8 k/uL (1.3-7.7); Neutrophils % (A) 59 %; Platelet Count 196 k/uL (150-450); RBC 5.15 m/uL (4.30-5.90); RDW 13.3 % (11.5-15.5); WBC 6.4 k/uL (3.8-10.6)
[2020-10-26 19:16] LABS: Hemoglobin A1C 5.2 % (4.0-6.0)
[2020-10-26 20:12] LABS: African American GFR (CKD) 113.3 (60.0-200.0); Albumin 4.8 g/dL (3.80-4.90); Albumin/Globulin Ratio 2.67 (1.60-3.17); Anion Gap 5.5 mmol/L (4.00-12.00); Calcium 9.8 mg/dL (8.7-10.3); Carbon Dioxide 24.5 mmol/L (21.6-31.8); Chol/HDL Ratio 3.11; Globulin 1.8 g/dL (1.6-3.3); LDL Cholesterol,Calculated 109.6 mg/dL (0.0-131.0); Non-African American GFR(CKD) 97.8 (60.0-200.0); Potassium 4.4 mmol/L (3.5-5.5); Total Bilirubin 0.3 mg/dL (0.2-1.2); Total Protein 6.6 g/dL (6.2-8.2); VLDL Calculation 10.4 mg/dL (5.00-40.00)
[2020-10-26 20:20] LABS: Prolactin 20.4 ng/mL (2.1-17.7); T4, Free (Free Thyroxine) 1.2 ng/dL (0.80-1.80)
== END | disposition home or self-care (01) ==
LOC: LABWHC1 10:48
PROVIDERS: ATTEND Nurse Practitioner Psychiatric/Mental Health
DX: Z51.81 Encounter for therapeutic drug level monitoring (principal); Z79.899 Other long term (current) drug therapy
CPT/HCPCS: 36415; 80053; 80061; 83036; 84146; 84439; 84443; 85025

== ENCOUNTER 2020-12-11 09:28 | Emergency (ER) | payer OTHER ==
[2020-12-11 09:42] VITALS: RESP 18
[2020-12-11] MEDS ORDERED: SODIUM CHLORIDE 0.9% 1,000 ML IV STA (09:53)
[2020-12-11 10:12] LABS: Appearance,Urine Clear (Clear); Bilirubin,Urine Negative (Negative); Blood,Urine Negative (Negative); Color,Urine Light Yellow; Glucose,Urine (UA) Negative (Negative); Ketones,Urine Negative (Negative); Leukocyte Esterase,Urine Negative (Negative); Nitrite,Urine Negative (Negative); Protein,Urine Negative (Negative); Urobilinogen,Urine <2.0 mg/dL (<2.0)
[2020-12-11 10:14] LABS: Basophils % (A) 0 %; Eosinophils # (A) 0.2 k/uL (0-0.7); Eosinophils % (A) 2 %; HCT 44.8 % (39.0-53.0); HGB 15.6 gm/dL (13.0-17.5); Lymphocytes # (A) 1.8 k/uL (1.0-4.8); Lymphocytes % (A) 24 %; MCH 31.2 pg (25.0-35.0); MCHC 34.7 g/dL (31.0-37.0); MCV 89.9 fL (80.0-100.0); Mean Platelet Volume 8.9; Monocytes # (A) 0.5 k/uL (0-1.0); Monocytes % (A) 7 %; Neutrophils # (A) 4.7 k/uL (1.3-7.7); Neutrophils % (A) 65 %; Platelet Count 162 k/uL (150-450); RBC 4.98 m/uL (4.30-5.90); RDW 12.8 % (11.5-15.5); WBC 7.3 k/uL (3.8-10.6)
[2020-12-11 10:40] LABS: African American GFR (CKD) >90 (>60 ml/min/1.73 sqM); Anion Gap 7 mmol/L; Blood Urea Nitrogen 13 mg/dL (9-20); Calcium 9.8 mg/dL (8.4-10.2); Carbon Dioxide 24 mmol/L (22-30); Chloride 105 mmol/L (98-107); Glucose 103 mg/dL (74-99); Non-African American GFR(CKD) >90 (>60 ml/min/1.73 sqM); Potassium 4.1 mmol/L (3.5-5.1); Sodium 136 mmol/L (137-145)
[2020-12-11 10:49] VITALS: BP 125/80; PULSE 64; TEMP 98
--- NOTE | 2020-12-11 11:05 | ED ---
Male Urogenital HPI - General Chief complaint: Urogenital Stated complaint: Urinating Blood Time Seen by Provider: 12/11/20 09:44 Source: patient Mode of arrival: ambulatory Limitations: no limitations - History of Present Illness Initial comments: 18-year-old male presents to the emergency department with a chief complaint of blood in the urine. Patient states he had about 2-3 episodes of this. The last episode was about 4 days ago and he has been asymptomatic since. Patient states he was not able to come to emergency department earlier due to transportation reasons. He did report having some mild flank pain during the episodes of hematuria but nothing since. Patient states no history of kidney stones. He denies any increased urgency frequency or dysuria. He is not concerned for STDs. Denies testicular swelling, penile discharge. - Related Data Home Medications Medication Instructions Recorded Confirmed OXcarbazepine [Trileptal] 150 mg PO BID 09/21/20 12/11/20 Paliperidone Palmitate [Invega 117 mg IM DIRECTED 09/21/20 12/11/20 Sustenna] Paliperidone Palmitate [Invega 410 mg IM DIRECTED 12/11/20 12/11/20 Trinza] Allergies Allergy/AdvReac Type Severity Reaction Status Date / Time No Known Allergies Allergy Verified 12/11/20 10:19 Review of Systems ROS Statement: Those systems with pertinent positive or pertinent negative responses have been documented in the HPI. ROS Other: All systems not noted in ROS Statement are negative. Past Medical History Past Medical History: No Reported History Additional Past Medical History / Comment(s): mentally challenged History of Any Multi-Drug Resistant Organisms: None Reported Past Surgical History: No Surgical Hx Reported Additional Past Surgical History / Comment(s): cyst over eye removed Past Psychological History: ADD/ADHD Smoking Status: Current every day smoker Past Alcohol Use History: Occasional Past Drug Use History: Marijuana General Exam Limitations: no limitations General appearance: alert, in no apparent distress Head exam: Present: atraumatic, normocephalic, normal inspection Eye exam: Present: normal appearance, PERRL, EOMI Pupils: Present: normal accommodation ENT exam: Present: normal exam, normal oropharynx, mucous membranes moist Neck exam: Present: normal inspection, full ROM. Absent: tenderness Respiratory exam: Present: normal lung sounds bilaterally. Absent: respiratory distress Cardiovascular Exam: Present: regular rate, normal rhythm, normal heart sounds exam: Present: normal inspection. Absent: testicular tenderness, urethral discharge, scrotal swelling, vertical testicular lie Extremities exam: Present: normal inspection, full ROM, normal capillary refill. Absent: tenderness Back exam: Present: normal inspection, full ROM. Absent: tenderness, CVA tenderness (R), CVA tenderness (L) Neurological exam: Present: alert, oriented X3 Psychiatric exam: Present: normal affect, normal mood Skin exam: Present: warm, dry, intact, normal color Course Vital Signs 12/11/20 12/11/20 09:39 10:47 Temperature 98.1 F 98 F Pulse Rate 70 64 Respiratory 18 18 Rate Blood Pressure 132/90 125/80 O2 Sat by Pulse 99 100 Oximetry Medical Decision Making - Medical Decision Making 35-year-old male presents to emergency Department with a chief complaint of blood in the urine. This hasn't occurred in 4 days. CBC unremarkable. CMP reveals normal renal function. UA is unremarkable. Physical examination is also unremarkable. Patient will be discharged with outpatient follow-up. Return parameters discussed with patient was understanding and agreeable. Case discussed with - Lab Data Result diagrams: 12/11/20 10:00 12/11/20 10:00 Lab Results 12/11/20 12/11/20 12/11/20 Range/Units 10:00 10:00 10:00 WBC 7.3 (3.8-10.6) k/uL RBC 4.98 (4.30-5.90) m/uL Hgb 15.6 (13.0-17.5) gm/dL Hct 44.8 (39.0-53.0) % MCV 89.9 (80.0-100.0) fL MCH 31.2 (25.0-35.0) pg MCHC 34.7 (31.0-37.0) g/dL RDW 12.8 (11.5-15.5) % Plt Count 162 (150-450) k/uL MPV 8.9 Neutrophils % 65 % Lymphocytes % 24 % Monocytes % 7 % Eosinophils % 2 % Basophils % 0 % Neutrophils # 4.7 (1.3-7.7) k/uL Lymphocytes # 1.8 (1.0-4.8) k/uL Monocytes # 0.5 (0-1.0) k/uL Eosinophils # 0.2 (0-0.7) k/uL Basophils # 0.0 (0-0.2) k/uL Sodium 136 L (137-145) mmol/L Potassium 4.1 (3.5-5.1) mmol/L Chloride 105 (98-107) mmol/L Carbon Dioxide 24 (22-30) mmol/L Anion Gap 7 mmol/L BUN 13 (9-20) mg/dL Creatinine 1.00 (0.66-1.25) mg/dL Est GFR (CKD-EPI)AfAm >90 (>60 ml/min/1.73 sqM) Est GFR (CKD-EPI)NonAf >90 (>60 ml/min/1.73 sqM) Glucose 103 H (74-99) mg/dL Calcium 9.8 (8.4-10.2) mg/dL Urine Color Light Yellow Urine Appearance Clear (Clear) Urine pH 7.0 (5.0-8.0) Ur Specific [place] 1.010 (1.001-1.035) Urine Protein Negative (Negative) Urine Glucose (UA) Negative (Negative) Urine Ketones Negative (Negative) Urine Blood Negative (Negative) Urine Nitrite Negative (Negative) Urine Bilirubin Negative (Negative) Urine Urobilinogen <2.0 (<2.0) mg/dL Ur Leukocyte Esterase Negative (Negative) Disposition Clinical Impression: History of blood in urine Disposition: HOME SELF-CARE Condition: Stable Instructions (If sedation given, give patient instructions): Hematuria (ED) Additional Instructions: Please return to the Emergency Department if symptoms worsen or any other concerns. Is patient prescribed a controlled substance at d/c from ED?: No Referrals: India Zambrano MD [Primary Care Provider] - 1-2 days Time of Disposition: 11:05
== END 2020-12-11 11:15 | disposition home or self-care (01) ==
LOC: EC 09:28
DX: R31.9 Hematuria, unspecified (principal); R10.9 Unspecified abdominal pain; F90.9 Attention-deficit hyperactivity disorder, unspecified type; F17.200 Nicotine dependence, unspecified, uncomplicated; Z79.899 Other long term (current) drug therapy
CPT/HCPCS: 36415; 80048; 81003; 85025; 96360; 99283

== ENCOUNTER 2021-01-31 12:51 | Emergency (ER) | payer OTHER ==
[2021-01-31 13:23] VITALS: BP 134/77; PULSE 73; RESP 18; TEMP 97.9
[2021-01-31] MEDS ORDERED: KETOROLAC 15 MG/ML 1 ML VIAL IM STA (13:47)
--- NOTE | 2021-01-31 14:34 | ED ---
Back Pain HPI - General Source: patient Limitations: no limitations <Brittney Ford - Last Filed: 01/31/21 14:52> <Zari Madrid - Last Filed: 02/01/21 00:43> - General Chief Complaint: Back Pain/Injury Stated Complaint: back pain Time Seen by Provider: 01/31/21 13:25 - History of Present Illness Initial Comments: Patient is a 35-year-old male presenting to emergency Department with complaints of low back pain since yesterday. He states he does a lot of lifting at work and feels like it is very sore. He did not take any medications for this. He denies any numbness and tingling to his extremities, no saddle paresthesias, no fevers or chills. Denies any bowel or bladder incontinence. He denies any previous injuries or surgeries on his back. He has no further complaints. (Brittney Ford) - Related Data Home Medications Medication Instructions Recorded Confirmed OXcarbazepine [Trileptal] 150 mg PO BID 09/21/20 12/11/20 Paliperidone Palmitate [Invega 117 mg IM DIRECTED 09/21/20 12/11/20 Sustenna] Paliperidone Palmitate [Invega 410 mg IM DIRECTED 12/11/20 12/11/20 Trinza] Allergies Allergy/AdvReac Type Severity Reaction Status Date / Time No Known Allergies Allergy Verified 01/31/21 13:20 Review of Systems ROS Other: All systems not noted in ROS Statement are negative. <Brittney Ford - Last Filed: 01/31/21 14:52> ROS Other: All systems not noted in ROS Statement are negative. <Zari Madrid - Last Filed: 02/01/21 00:43> ROS Statement: Those systems with pertinent positive or pertinent negative responses have been documented in the HPI. Past Medical History Past Medical History: No Reported History Additional Past Medical History / Comment(s): mentally challenged History of Any Multi-Drug Resistant Organisms: None Reported Past Surgical History: No Surgical Hx Reported Additional Past Surgical History / Comment(s): cyst over eye removed Past Psychological History: ADD/ADHD Smoking Status: Current every day smoker Past Alcohol Use History: Occasional Past Drug Use History: Marijuana <Brittney Ford - Last Filed: 01/31/21 14:52> General Exam Limitations: no limitations <Brittney Ford - Last Filed: 01/31/21 14:52> - General Exam Comments Initial Comments: GENERAL: Patient is well-developed and well-nourished. Patient is nontoxic and in no acute distress. HEAD: Atraumatic, normocephalic. EYES: Pupils equal round and reactive to light, extraocular movements intact, sclera anicteric, conjunctiva are normal. Eyelids were unremarkable. ENT: Nares patent, oropharynx clear without exudates. Moist mucous membranes. NECK: Normal range of motion, supple without lymphadenopathy or JVD. LUNGS: Unlabored respirations. Breath sounds clear to auscultation bilaterally and equal. No wheezes rales or rhonchi. HEART: Regular rate and rhythm without murmurs, rubs or gallops. ABDOMEN: Soft, nontender, normoactive bowel sounds. No guarding, no rebound. No masses appreciated. : Deferred MUSCULOSKELETAL: Normal extremities with adequate strength and normal range of motion, no pitting or edema. No clubbing or cyanosis. Patient has full trunk range of motion, pain free. Mild tenderness to the lumbar paraspinals. NEUROLOGICAL: Patient is alert and oriented x 3. Normal speech, normal gait. PSYCH: Normal mood, normal affect. SKIN: Warm, Dry, normal turgor, no rashes or lesions noted. (Brittney Ford) Course Vital Signs 01/31/21 13:21 Temperature 97.9 F Pulse Rate 73 Respiratory 18 Rate Blood Pressure 134/77 O2 Sat by Pulse 98 Oximetry Medical Decision Making <Brittney Ford - Last Filed: 01/31/21 14:52> <Zari Madrid - Last Filed: 02/01/21 00:43> - Medical Decision Making Patient is a 35-year-old male here for low back pain, no injuries or trauma, he has a completely normal exam with some mild tenderness in the lumbar paraspinals. Pain-free range of motion. Discussed the patient is most likely lumbar strain. We'll give him Toradol injection today. Recommend Tylenol Motrin at home. Patient is stable for discharge. Patient is in agreement with this plan of care. Return parameters were discussed with the patient and they verbalized understanding. Case discussed with Dr. Madrid. (Brittney Ford) I was available for consultation in the emergency department. The history and physical exam were done by the midlevel provider. I was consulted for this patients care. I reviewed the case with the midlevel provider and based on their presentation of the patient, I agree with the assessment, medical decision making and plan of care as documented. Chart was dictated using [employer] dictation software. Attempts were made to correct any dictation errors however some typographical errors may persist. Patient was seen during a national state of emergency due to the Covid-19 pandemic. (Zari Madrid) Disposition Is patient prescribed a controlled substance at d/c from ED?: No Time of Disposition: 14:33 <Brittney Ford - Last Filed: 01/31/21 14:52> <Zari Madrid - Last Filed: 02/01/21 00:43> Clinical Impression: Strain of lumbar region Disposition: HOME SELF-CARE Condition: Stable Instructions (If sedation given, give patient instructions): Acute Low Back Pain (ED) Additional Instructions: Please return to the Emergency Department if symptoms worsen or any other concerns. Take Tylenol or ibuprofen for discomfort. Apply ice or heat to the back. Follow-up with your regular doctor if symptoms persist. Referrals: [facility] [Primary Care Provider] - 1-2 days
== END 2021-01-31 14:54 | disposition home or self-care (01) ==
LOC: EC 12:51
DX: S39.012A Strain of muscle, fascia and tendon of lower back, initial encounter (principal); F90.9 Attention-deficit hyperactivity disorder, unspecified type; F17.200 Nicotine dependence, unspecified, uncomplicated; Z79.899 Other long term (current) drug therapy; X50.9XXA Other and unspecified overexertion or strenuous movements or postures, initial encounter
CPT/HCPCS: 99283; 96372; J1885

== ENCOUNTER 2021-06-15 12:16 | Emergency (ER) | payer OTHER ==
[2021-06-15] MEDS ORDERED: SODIUM CHLORIDE 0.9% 1,000 ML IV STA (12:27)
[2021-06-15 12:32] VITALS: TEMP 98
[2021-06-15 13:07] LABS: Basophils % (A) 0 %; Eosinophils # (A) 0.1 k/uL (0-0.7); Eosinophils % (A) 1 %; HCT 43.6 % (39.0-53.0); HGB 15.7 gm/dL (13.0-17.5); Lymphocytes # (A) 1.1 k/uL (1.0-4.8); Lymphocytes % (A) 9 %; MCH 32.5 pg (25.0-35.0); MCHC 35.9 g/dL (31.0-37.0); MCV 90.5 fL (80.0-100.0); Mean Platelet Volume 8.7; Monocytes # (A) 0.6 k/uL (0-1.0); Monocytes % (A) 4 %; Neutrophils # (A) 10.9 k/uL (1.3-7.7); Neutrophils % (A) 86 %; Platelet Count 175 k/uL (150-450); RBC 4.82 m/uL (4.30-5.90); WBC 12.7 k/uL (3.8-10.6)
--- NOTE | 2021-06-15 13:07 | ED ---
General Adult HPI - General Source: patient, EMS, RN notes reviewed, old records reviewed Mode of arrival: EMS <Dominguez Yap - Last Filed: 06/15/21 14:13> <Sonja Scales P - Last Filed: 06/15/21 20:04> - General Stated complaint: mental health Time Seen by Provider: 06/15/21 12:17 - History of Present Illness Initial comments: 36-year-old male presenting for evaluation of suicidal ideation, suicide attempt. Patient states he took 2 of his prescribed Trileptal capsules today. He states he is prescribed this medication but has not been taking it for the past 3 days. He states he did dump some pills into the sink as well. Patient is uncertain exactly why he did this. He denies any other coingestions. He denies physical complaints. He states he "wants to be with his [facility] (Dominguez Yap) - Related Data Home Medications Medication Instructions Recorded Confirmed Paliperidone Palmitate [Invega 410 mg IM Q84D 12/11/20 06/15/21 Trinza] OXcarbazepine [Trileptal] 300 mg PO BID 06/15/21 06/15/21 Allergies Allergy/AdvReac Type Severity Reaction Status Date / Time No Known Allergies Allergy Verified 06/15/21 12:40 Review of Systems ROS Other: All systems not noted in ROS Statement are negative. <Dominguez Yap - Last Filed: 06/15/21 14:13> ROS Other: All systems not noted in ROS Statement are negative. <Sonja Scales - Last Filed: 06/15/21 20:04> ROS Statement: Those systems with pertinent positive or pertinent negative responses have been documented in the HPI. Past Medical History Past Medical History: No Reported History Additional Past Medical History / Comment(s): mentally challenged History of Any Multi-Drug Resistant Organisms: None Reported Past Surgical History: No Surgical Hx Reported Additional Past Surgical History / Comment(s): cyst over eye removed Past Psychological History: ADD/ADHD Smoking Status: Current every day smoker Past Alcohol Use History: Occasional Past Drug Use History: Marijuana <Dominguez Yap - Last Filed: 06/15/21 14:13> General Exam General appearance: alert, in no apparent distress Head exam: Present: atraumatic, normocephalic Eye exam: Present: normal appearance, PERRL, EOMI ENT exam: Present: normal exam Neck exam: Present: normal inspection. Absent: tenderness, meningismus Respiratory exam: Present: normal lung sounds bilaterally. Absent: respiratory distress Cardiovascular Exam: Present: regular rate, normal rhythm GI/Abdominal exam: Present: soft. Absent: distended, tenderness, guarding, rebound Extremities exam: Present: normal inspection, normal capillary refill. Absent: pedal edema Neurological exam: Present: alert, oriented X3, CN II-XII intact. Absent: motor sensory deficit Psychiatric exam: Present: depressed, anxious, suicidal ideation Skin exam: Present: warm, dry, intact. Absent: cyanosis, diaphoretic <Dominguez Yap - Last Filed: 06/15/21 14:13> Course <Dominguez Yap - Last Filed: 06/15/21 14:13> Vital Signs 06/15/21 06/15/21 06/15/21 12:19 13:13 14:16 Temperature 98.0 F Pulse Rate 74 65 70 Respiratory 18 16 18 Rate Blood Pressure 126/75 126/74 122/81 O2 Sat by Pulse 99 100 100 Oximetry 06/15/21 06/15/21 15:48 17:28 Temperature Pulse Rate 69 69 Respiratory 16 18 Rate Blood Pressure 138/90 O2 Sat by Pulse 98 97 Oximetry - Reevaluation(s) Reevaluation #1: 06/15/21 14:13 Patient medically cleared for EPS. (Dominguez Yap) EKG Findings - EKG Comments: EKG Findings:: EKG: Normal sinus rhythm, rate 68, MD interval 160, QRS duration 86, QTC 412, no ST segment elevation. <Dominguez Yap - Last Filed: 06/15/21 14:13> Medical Decision Making - Lab Data Result diagrams: 06/15/21 12:30 06/15/21 12:30 <Dominguez Yap - Last Filed: 06/15/21 14:13> - Lab Data Result diagrams: 06/15/21 12:30 06/15/21 12:30 <Sonja Scales - Last Filed: 06/15/21 20:04> - Medical Decision Making Care was signed out to me by , who presented after an apparent overd ose but turns out he had only taken to Lamictal. Patient did admit to some depression he was evaluated by emergency psychiatric services. He is open with [facility]. At this time he denies any suicidality. Patient and EPS feel he is stable for discharge home. (Sonja Scales) - Lab Data Lab Results 06/15/21 06/15/21 06/15/21 Range/Units 12:30 12:30 12:30 WBC 12.7 H (3.8-10.6) k/uL RBC 4.82 (4.30-5.90) m/uL Hgb 15.7 (13.0-17.5) gm/dL Hct 43.6 (39.0-53.0) % MCV 90.5 (80.0-100.0) fL MCH 32.5 (25.0-35.0) pg MCHC 35.9 (31.0-37.0) g/dL RDW 13.0 (11.5-15.5) % Plt Count 175 (150-450) k/uL MPV 8.7 Neutrophils % 86 % Lymphocytes % 9 % Monocytes % 4 % Eosinophils % 1 % Basophils % 0 % Neutrophils # 10.9 H (1.3-7.7) k/uL Lymphocytes # 1.1 (1.0-4.8) k/uL Monocytes # 0.6 (0-1.0) k/uL Eosinophils # 0.1 (0-0.7) k/uL Basophils # 0.0 (0-0.2) k/uL Sodium 132 L (137-145) mmol/L Potassium 3.6 (3.5-5.1) mmol/L Chloride 102 (98-107) mmol/L Carbon Dioxide 21 L (22-30) mmol/L Anion Gap 9 mmol/L BUN 6 L (9-20) mg/dL Creatinine 0.82 (0.66-1.25) mg/dL Est GFR (CKD-EPI)AfAm >90 (>60 ml/min/1.73 sqM) Est GFR (CKD-EPI)NonAf >90 (>60 ml/min/1.73 sqM) Glucose 160 H (74-99) mg/dL Plasma Lactic Acid Wagner 1.0 (0.7-2.0) mmol/L Calcium 9.4 (8.4-10.2) mg/dL Magnesium 1.6 (1.6-2.3) mg/dL Total Bilirubin 0.3 (0.2-1.3) mg/dL AST 24 (17-59) U/L ALT 21 (4-49) U/L Alkaline Phosphatase 93 (38-126) U/L Creatine Kinase 138 (55-170) U/L Total Protein 6.9 (6.3-8.2) g/dL Albumin 4.3 (3.5-5.0) g/dL Urine Color Urine Appearance (Clear) Urine pH (5.0-8.0) Ur Specific [place] (1.001-1.035) Urine Protein (Negative) Urine Glucose (UA) (Negative) Urine Ketones (Negative) Urine Blood (Negative) Urine Nitrite (Negative) Urine Bilirubin (Negative) Urine Urobilinogen (<2.0) mg/dL Ur Leukocyte Esterase (Negative) Urine RBC (0-5) /hpf Urine WBC (0-5) /hpf Urine Mucus (None) /hpf Salicylates <1.0 mg/dL Urine Opiates Screen (NotDetected) Ur Oxycodone Screen (NotDetected) Urine Methadone Screen (NotDetected) Ur Propoxyphene Screen (NotDetected) Acetaminophen <10.0 ug/mL Ur Barbiturates Screen (NotDetected) U Tricyclic Antidepress (NotDetected) Ur Phencyclidine Scrn (NotDetected) Ur Amphetamines Screen (NotDetected) U Methamphetamines Scrn (NotDetected) U Benzodiazepines Scrn (NotDetected) Urine Cocaine Screen (NotDetected) U Marijuana (THC) Screen (NotDetected) Serum Alcohol <10 mg/dL 06/15/21 Range/Units 15:53 WBC (3.8-10.6) k/uL RBC (4.30-5.90) m/uL Hgb (13.0-17.5) gm/dL Hct (39.0-53.0) % MCV (80.0-100.0) fL MCH (25.0-35.0) pg MCHC (31.0-37.0) g/dL RDW (11.5-15.5) % Plt Count (150-450) k/uL MPV Neutrophils % % Lymphocytes % % Monocytes % % Eosinophils % % Basophils % % Neutrophils # (1.3-7.7) k/uL Lymphocytes # (1.0-4.8) k/uL Monocytes # (0-1.0) k/uL Eosinophils # (0-0.7) k/uL Basophils # (0-0.2) k/uL Sodium (137-145) mmol/L Potassium (3.5-5.1) mmol/L Chloride (98-107) mmol/L Carbon Dioxide (22-30) mmol/L Anion Gap mmol/L BUN (9-20) mg/dL Creatinine (0.66-1.25) mg/dL Est GFR (CKD-EPI)AfAm (>60 ml/min/1.73 sqM) Est GFR (CKD-EPI)NonAf (>60 ml/min/1.73 sqM) Glucose (74-99) mg/dL Plasma Lactic Acid [place] (0.7-2.0) mmol/L Calcium (8.4-10.2) mg/dL Magnesium (1.6-2.3) mg/dL Total Bilirubin (0.2-1.3) mg/dL AST (17-59) U/L ALT (4-49) U/L Alkaline Phosphatase (38-126) U/L Creatine Kinase (55-170) U/L Total Protein (6.3-8.2) g/dL Albumin (3.5-5.0) g/dL Urine Color Yellow Urine Appearance Clear (Clear) Urine pH 6.0 (5.0-8.0) Ur Specific [place] 1.015 (1.001-1.035) Urine Protein Negative (Negative) Urine Glucose (UA) Negative (Negative) Urine Ketones Negative (Negative) Urine Blood Negative (Negative) Urine Nitrite Negative (Negative) Urine Bilirubin Negative (Negative) Urine Urobilinogen <2.0 (<2.0) mg/dL Ur Leukocyte Esterase Trace H (Negative) Urine RBC 3 (0-5) /hpf Urine WBC 1 (0-5) /hpf Urine Mucus Rare H (None) /hpf Salicylates mg/dL Urine Opiates Screen Not Detected (NotDetected) Ur Oxycodone Screen Not Detected (NotDetected) Urine Methadone Screen Not Detected (NotDetected) Ur Propoxyphene Screen Not Detected (NotDetected) Acetaminophen ug/mL Ur Barbiturates Screen Not Detected (NotDetected) U Tricyclic Antidepress Not Detected (NotDetected) Ur Phencyclidine Scrn Not Detected (NotDetected) Ur Amphetamines Screen Not Detected (NotDetected) U Methamphetamines Scrn Not Detected (NotDetected) U Benzodiazepines Scrn Not Detected (NotDetected) Urine Cocaine Screen Not Detected (NotDetected) U Marijuana (THC) Screen Detected H (NotDetected) Serum Alcohol mg/dL Disposition <Dominguez Yap N - Last Filed: 06/15/21 14:13> Is patient prescribed a controlled substance at d/c from ED?: No <Sonja Scales P - Last Filed: 06/15/21 20:04> Clinical Impression: Depression Disposition: HOME SELF-CARE Condition: Stable Instructions (If sedation given, give patient instructions): Adult Overdose (ED) Referrals: [facility] [Primary Care Provider] - 1-2 days
[2021-06-15 13:20] LABS: ALT 21 U/L (4-49); AST 24 U/L (17-59); Acetaminophen <10.0 ug/mL; African American GFR (CKD) >90 (>60 ml/min/1.73 sqM); Albumin 4.3 g/dL (3.5-5.0); Alcohol <10 mg/dL; Alkaline Phosphatase 93 U/L (38-126); Anion Gap 9 mmol/L; Blood Urea Nitrogen 6 mg/dL (9-20); Calcium 9.4 mg/dL (8.4-10.2); Carbon Dioxide 21 mmol/L (22-30); Chloride 102 mmol/L (98-107); Creatine Kinase 138 U/L (55-170); Glucose 160 mg/dL (74-99); Magnesium 1.6 mg/dL (1.6-2.3); Non-African American GFR(CKD) >90 (>60 ml/min/1.73 sqM); Potassium 3.6 mmol/L (3.5-5.1); Salicylate <1.0 mg/dL; Sodium 132 mmol/L (137-145); Total Bilirubin 0.3 mg/dL (0.2-1.3); Total Protein 6.9 g/dL (6.3-8.2)
[2021-06-15 16:07] LABS: Appearance,Urine Clear (Clear); Color,Urine Yellow; Protein,Urine Negative (Negative); Specific Gravity,Urine 1.015 (1.001-1.035)
[2021-06-15 16:08] LABS: Bilirubin,Urine Negative (Negative); Blood,Urine Negative (Negative); Glucose,Urine (UA) Negative (Negative); Ketones,Urine Negative (Negative); Leukocyte Esterase,Urine Trace (Negative); Mucus,Urine Rare /hpf; Nitrite,Urine Negative (Negative); RBC,Urine 3 /hpf (0-5); Urobilinogen,Urine <2.0 mg/dL (<2.0); WBC,Urine 1 /hpf (0-5)
[2021-06-15 16:36] LABS: Amphetamine Screen,Urine Not Detected (NotDetected); Barbiturate Screen,Urine Not Detected (NotDetected); Benzodiazepines Screen,Urine Not Detected (NotDetected); Cocaine Screen,Urine Not Detected (NotDetected); Methadone Screen, Urine Not Detected (NotDetected); Opiate Screen,Urine Not Detected (NotDetected); Oxycodone Screen, Urine Not Detected (NotDetected); Phencyclidine Screen,Urine Not Detected (NotDetected); Tricyclic Antidepressant,Urine Not Detected (NotDetected); Urn Cannabinoid Scrn Detected (NotDetected)
[2021-06-15 17:29] VITALS: RESP 18
[2021-06-15 20:25] VITALS: BP 110/99; PULSE 71
== END 2021-06-15 20:53 | disposition home or self-care (01) ==
LOC: EC 12:16
DX: F32.9 Major depressive disorder, single episode, unspecified (principal); F90.9 Attention-deficit hyperactivity disorder, unspecified type; F17.200 Nicotine dependence, unspecified, uncomplicated; F12.90 Cannabis use, unspecified, uncomplicated
CPT/HCPCS: 99285; 96360; 82075; 36415; 93005; 80053; 82550; 83605; 83735; 85025; 81001; 80306; 80143; 80179; G0480; 80320

== ENCOUNTER 2022-08-08 16:17 | Inpatient (IN) | payer MEDICARE, OTHER ==
--- NOTE | 2022-08-08 17:40 | ED ---
Psych HPI - General Source: patient, police, RN notes reviewed Mode of arrival: ambulatory <Diana Fung - Last Filed: 08/08/22 18:50> <Davion Wells - Last Filed: 08/08/22 21:18> - General Chief Complaint: Psychiatric Symptoms Stated Complaint: PETITION Time Seen by Provider: 08/08/22 16:53 - History of Present Illness Initial Comments: Patient is a 37-year-old male presenting to the emergency room via police escort from [place] petition for threatening to kill his roommate. He states that approximately 1 week ago he ran out of his medication of Invega and Trileptal which she has been on for some time and has been doing well on. He reports that without the medication he is becoming easily agitated. His guardian has completed a petition for psychiatric evaluation. He denies any audio or visual hallucinations or delusions. He denies any suicidal ideations and reports that he does not really want to kill his roommate he just would like to obtain his medications. He has a past medical history of developmental delay with a guardian as stated above along with ADHD and depression. (Diana Fung) - Related Data Home Medications Medication Instructions Recorded Confirmed OXcarbazepine [Trileptal] 300 mg PO BID 06/15/21 08/08/22 Paliperidone [Invega] 9 mg PO HS 08/08/22 08/08/22 Allergies Allergy/AdvReac Type Severity Reaction Status Date / Time No Known Allergies Allergy Verified 08/08/22 20:09 Review of Systems ROS Other: All systems not noted in ROS Statement are negative. <Diana Fung - Last Filed: 08/08/22 18:50> ROS Other: All systems not noted in ROS Statement are negative. <Davion Wells - Last Filed: 08/08/22 21:18> ROS Statement: Those systems with pertinent positive or pertinent negative responses have been documented in the HPI. Past Medical History Past Medical History: Neurologic Disorder Additional Past Medical History / Comment(s): mentally challenged History of Any Multi-Drug Resistant Organisms: None Reported Past Surgical History: No Surgical Hx Reported Additional Past Surgical History / Comment(s): cyst over eye removed Past Psychological History: ADD/ADHD, Depression Smoking Status: Current every day smoker Past Alcohol Use History: Occasional Past Drug Use History: Marijuana <Diana Fung - Last Filed: 08/08/22 18:50> Course Vital Signs 08/08/22 08/08/22 16:37 18:00 Temperature 99.0 F Pulse Rate 101 H Respiratory 18 18 Rate Blood Pressure 142/78 O2 Sat by Pulse 95 Oximetry Medical Decision Making <Diana Fung - Last Filed: 08/08/22 18:50> - Medical Decision Making Severity 37-year-old male presenting to the emergency room via police escort for petition for psychiatric evaluation for threatening to kill his roommate. Patient denies any suicidal or homicidal ideations and reports that he "just needs his medications" which she ran out of one week ago. Patient placed in room with psychiatric precautions with his belongings removed, breath alcohol test 0.00. No indication for further diagnostic imaging or laboratory studies. Patient is medically cleared for psychiatric evaluation. Patient awaiting EPS evaluation to determine disposition. Case transferred over to Dr. Wells for continued monitoring until EPS evaluation and for disposal. (Diana Fung) - Lab Data Lab Results 08/08/22 Range/Units 19:25 Coronavirus (PCR) Not Detected (Not Detectd) Disposition <Diana Fung - Last Filed: 08/08/22 18:50> Is patient prescribed a controlled substance at d/c from ED?: No <Davion Wells - Last Filed: 08/08/22 21:18> Clinical Impression: Mood disorder Disposition: ADMITTED IP TO THIS HOSP Condition: Good Referrals: India Zambrano MD [REFERRING] - 1-2 days
[2022-08-08] MEDS ORDERED: ACETAMINOPHEN TAB 325 MG TAB PO PRN (21:45)
[2022-08-08] MEDS ORDERED: MAGNESIUM HYDROXIDE 2,400 MG/10 ML CUP PO PRN (21:45)
[2022-08-08] MEDS ORDERED: MAG HYDROX/AL HYDROX/SIMETH 30 ML CUP PO PRN (21:45)
[2022-08-08] MEDS ORDERED: HALOPERIDOL LACTATE 5 MG/ML 1 ML VIAL IM PRN (21:46)
[2022-08-08] MEDS ORDERED: haloperidoL 5 MG TAB PO PRN (21:46)
[2022-08-08] MEDS ORDERED: LORazepam 1 MG/0.5 ML VIAL IM PRN (21:46)
[2022-08-08] MEDS ORDERED: LORazepam 1 MG TAB PO PRN (21:46)
[2022-08-08] MEDS: PALIPERIDONE 3 MG TAB.ER.24 PO SCH (22:49)
[2022-08-08] MEDS: OXcarbazepine 300 MG TAB PO SCH (22:49)
--- NOTE | 2022-08-09 04:05 | P.PN ---
Progress Note - Text Progress Note Date: 08/09/22 patient refused evaluation at this time
[2022-08-09] MEDS: OXcarbazepine 300 MG TAB PO SCH ×2 (08:37→20:03)
[2022-08-09] MEDS: NICOTINE 14MG/24HR PATCH TRANSDERM SCH ×2 (08:37→08:38)
--- NOTE | 2022-08-09 11:21 | P.HP ---
Psychiatric H&P - . 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 HPI: Patient presented to the hospital yesterday and was evaluated in the ED. Patient was brought in by police from his home in [place]. Patient was on a pe tition that described patient not taking his medications or follow-up and also describing that patient had threatened his roommate to kill him. Patient apparently used to follow up with [facility] with the nurse practitioner however has not been taking his medications and did not go to his follow-up appointments. Patient was admitted today unit involuntarily on a petition and certificate. Patient was seen today roaming the hallways and agreeable to streaked underwriter mortgage loan. Patient appeared to be disheveled in appearance for poor hygiene and grooming. He states that he has been off his medications for about a week now. He claims that he "called the building services coordinator myself". He states that "I just told them some stuff to get me up here". He claims that he is been having fluctuations in his mood and claims that he was feeling irritable and easily agitated. He states that he does not want to harm his roommate and "never said that". He has poor insight and judgment and repeatedly told underwriter mortgage loan that he wants to "get back on my meds" however did not explain what to help him with. He claims that he does feel irritable at this time however also describes that he is "happier" being on the unit. He states that he used to be on a long-acting injection however his nurse practitioner took him off of that. Denying any depression at this time or anxiety. States that his sleep and appetite are fair. Patient denies any suicidal or homicidal ideations intent or plan. At this time patient denies any auditory or visual hallucinations. Patient denies any flight of ideas racing thoughts and increased in goal directed behavior. Patient admits to using cigarettes daily and also marijuana daily as well. PAST PSYCHIATRIC HISTORY: Patient states that he has a history of bipolar disorder and also a history of intellectual disability. Patient was previously on paliperidone by mouth and also Trileptal. Patient was being seen at the [facility] by nurse practitioner Meenu however missed several follow-up a ppointments with her. She states that she has not been admitted psychiatrically in the past. Patient denies any history of suicide attempts in the past. PMH: As per ER note. ALLERGIES: as per EMR CHEMICAL DEPENDENCY HISTORY: as per HPI FAMILY PSYCHIATRIC/SUBSTANCE USE HISTORY: Claims his brother and father had some form of mental illness and he believes that it is bipolar disorder. SOCIAL HISTORY: Patient was born and raised in [place], currently lives with a roomate in an apartment. He collcts [employer]. He does not have any kids. He claims that he did complete his high school diploma however was enrolled in special education courses. He states that he had "for misdemeanors" in the past and served minimal [facility] time. MENTAL STATUS EXAM: General Appearance: Patient appears to be short in stature, clifford, disheveled appearance, older than stated age is alert, directable, and attempts to cooperate. Patient appears to have poor hygiene and grooming. Behavior: Patient is seated without any agitated behavior. Difficult to redirect at times. Speech: Patient's speech is fluent and nonpressured. Perseverates. Mood/Affect: Patient reports their mood is "up and down, affect is congruent Suicidality/Homicidality: Patient denies having any homicidal ideation intent or plan. Denies any suicidal ideations intent or plan Perceptions: Patient denies any visual hallucinations and denies any auditory hallucinations Though content/process: Perseverates, tangential at times. Not endorsing any delusions or paranoia. Memory and concentration: AOX3, grossly intact for the purposes of this session. Can spell "WORLD" backwards Judgment and insight: Chronically limited/poor. STRENGTHS/WEAKNESSES: strength is that patient is resilient. Weakness is that patient has poor judgment and is impulsive INTELLECT: Below average IMPRESSIONS: Bipolar disorder Intellectual disability Cannabis use disorder Nicotine dependence PLAN: -Patient is admitted under involuntary status to [facility] for stabilization of psychiatric symptoms and safety. Patient has not signed adult voluntary form and is placed in patient's chart. A second certification was completed and along with petition will be filed for court. -Medications : Will start patient on his home dose of paliperidone by mouth 9 mg daily at bedtime for mood stabilization/psychosis. Trileptal 300 mg twice a day for mood stabilization. -Ativan and Haldol PRN for agitation/aggression -Patient was counselled on substance abuse and desired to cut back on use -Patient was informed of the risks, benefits and side effects of the medication and patient verbally consented to taking the medications. Patient signed med consent form and was placed in chart. -Internal Medicine consult to perform medical evaluation and physical. -NRT - nicotine patch -SW on board for discharge planning. Encourage patient to participate in groups to work on coping skills. Will await deferral and court date.
[2022-08-09 15:39] LABS: Basophils % (A) 0 %; Eosinophils # (A) 0.1 k/uL (0-0.7); Eosinophils % (A) 1 %; HCT 45.4 % (39.0-53.0); HGB 15.6 gm/dL (13.0-17.5); Lymphocytes # (A) 1.9 k/uL (1.0-4.8); Lymphocytes % (A) 18 %; MCH 30.4 pg (25.0-35.0); MCHC 34.3 g/dL (31.0-37.0); MCV 88.6 fL (80.0-100.0); Monocytes # (A) 0.6 k/uL (0-1.0); Monocytes % (A) 5 %; Neutrophils % (A) 75 %; Platelet Count 204 k/uL (150-450); RBC 5.13 m/uL (4.30-5.90); RDW 13.1 % (11.5-15.5); WBC 10.6 k/uL (3.8-10.6)
[2022-08-09 15:54] LABS: ALT 22 U/L (4-49); AST 27 U/L (17-59); African American GFR (CKD) >90 (>60 ml/min/1.73 sqM); Albumin 4.9 g/dL (3.5-5.0); Alkaline Phosphatase 104 U/L (38-126); Anion Gap 13 mmol/L; Bilirubin, Delta 0.2 mg/dL (0.0-0.2); Bilirubin,Unconjugated 0.3 mg/dL (0.0-1.1); Blood Urea Nitrogen 16 mg/dL (9-20); Calcium 10.3 mg/dL (8.4-10.2); Carbon Dioxide 26 mmol/L (22-30); Chloride 96 mmol/L (98-107); Glucose 80 mg/dL (74-99); Non-African American GFR(CKD) >90 (>60 ml/min/1.73 sqM); Potassium 4.1 mmol/L (3.5-5.1); Sodium 135 mmol/L (137-145); Total Bilirubin 0.5 mg/dL (0.2-1.3); Total Protein 7.4 g/dL (6.3-8.2)
[2022-08-09] MEDS: PALIPERIDONE 3 MG TAB.ER.24 PO SCH (20:03)
[2022-08-09] MEDS ORDERED: OXcarbazepine 300 MG TAB PO SCH (21:48)
[2022-08-10] MEDS: OXcarbazepine 300 MG TAB PO SCH ×2 (09:28→20:05)
[2022-08-10] MEDS: NICOTINE 14MG/24HR PATCH TRANSDERM SCH (09:28)
[2022-08-10] MEDS: PALIPERIDONE 3 MG TAB.ER.24 PO SCH (20:05)
--- NOTE | 2022-08-10 21:13 | P.PN ---
Progress Note - Text Progress Note Date: 08/10/22 Interval history: Patient was seen wandering the hallways and was directable and agreeable to speak with advertising copywriter. He is cooperative but somewhat intrusive. He reports good mood, sleep and appetite. He is attending groups and participating. At this time patient denies any suicidal or homicidal ideation, intent or plan; and denies any auditory or visual hallucinations. Patient denies any side effects from the medications and has been compliant with meds. Mental status exam: General Appearance: Patient appears to be older than stated age, short stature, slender build, fair hygiene. Behavior: No agitated behavior. Patient is calm and directable, somewhat intrusive. Speech: Patient's speech is fluent and non-pressured. Mood/Affect: Mood is improving mildly, affect is congruent and constricted. Suicidality/Homicidality: Patient denies having any suicidal or homicidal ideation intent or plan. Perceptions: Patient denies any auditory or visual hallucinations. Though process: Somewhat concrete, otherwise linear. Thought content: There is no evidence of any delusional thought content. Memory and concentration: AOX3, grossly intact for the purposes of this session Judgment and insight: improving mildly Assessment/Plan: Continue with current diagnosis. Patient continues to meet criteria for inpatient psychiatric admission for symptom stabilization and safety. Patient will be maintained on current psychotropic medication regimen. Monitor for medication compliance and for any psychotropic medication side effects. Will continue to monitor ongoing response to treatment. Encouraged participation in milieu.
[2022-08-11 07:19] VITALS: TEMP 97.1
[2022-08-11] MEDS: NICOTINE 14MG/24HR PATCH TRANSDERM SCH (09:24)
[2022-08-11] MEDS: OXcarbazepine 300 MG TAB PO SCH ×2 (09:25→20:15)
[2022-08-11] MEDS: PALIPERIDONE 3 MG TAB.ER.24 PO SCH (20:15)
--- NOTE | 2022-08-11 22:06 | P.PN ---
Progress Note - Text Progress Note Date: 08/11/22 Interval history: Patient was seen wandering the hallways and was directable and agreeable to speak with proposal writer. He is cooperative but somewhat intrusive and needs redirection regarding boundaries. He reports good mood, sleep and appetite. He is attending groups and participating. At this time patient denies any suicidal or homicidal ideation, intent or plan; and denies any auditory or visual hallucinations. Patient denies any side effects from the medications and has bee n compliant with meds. Mental status exam: General Appearance: Patient appears to be older than stated age, short stature, slender build, fair hygiene. Behavior: No agitated behavior. Patient is calm and directable, somewhat intrusive. Speech: Patient's speech is fluent and non-pressured. Mood/Affect: Mood is improving mildly, affect is congruent and constricted. Suicidality/Homicidality: Patient denies having any suicidal or homicidal ideation intent or plan. Perceptions: Patient denies any auditory or visual hallucinations. Though process: Mereta, some word finding difficulties Thought content: There is no evidence of any delusional thought content. Memory and concentration: AOX3, grossly intact for the purposes of this session Judgment and insight: improving mildly Assessment/Plan: Continue with current diagnosis. Patient continues to meet criteria for inpatient psychiatric admission for symptom stabilization and safety. Patient will be maintained on current psychotropic medication regimen. Monitor for medication compliance and for any psychotropic medication side effects. Will continue to monitor ongoing response to treatment. Encouraged participation in milieu.
[2022-08-12] MEDS: OXcarbazepine 300 MG TAB PO SCH ×2 (08:19→19:53)
--- NOTE | 2022-08-12 11:23 | P.PN ---
Progress Note - Text Progress Note Date: 08/12/22 Interval History: Patient was seen wandering the hallways and was directable and agreeable to deepak lopez with scientific technical writer in the office. Patient claims that he is doing better today in terms of his mood and also anxiety. He continues to have very superficial/limited insight and judgment. He states that he is taking his medications and tolerating them well. He claims that he is going to some groups. States that he wants to go home at this time and is refusing the long- acting injection. We spoke about needing to meet with the medical file clerk which patient states that he is agreeable to and would like to signed a deferral. He also claims that he has court tomorrow morning. At this time patient denies any suicidal or homical ideations, intent or plan. Patient denies any auditory, visual hallucinations and denies any paranoia or delusions. Patient denies any side effects from the medications and has been compliant with meds. Mental Status Exam: General Appearance: Patient appears to be short in stature, clifford, disheveled appearance, older than stated age is alert, directable, and attempts to cooperate. Patient appears to have improving hygiene and grooming. Behavior: Patient is seated without any agitated behavior. More directable today, less intrusive. Speech: Patient's speech is fluent and nonpressured. Mood/Affect: Patient reports their mood is "better", affect is congruent Suicidality/Homicidality: Patient denies having any homicidal ideation intent or plan. Denies any suicidal ideations intent or plan Perceptions: Patient denies any visual hallucinations and denies any auditory hallucinations Though content/process: Perseverates less, tangential at times. Not endorsing any delusions or paranoia. Focused on discharge Memory and concentration: AOX3, grossly intact for the purposes of this session Judgment and insight: Chronically limited/poor, improving mildly IMPRESSIONS: Bipolar disorder Intellectual disability Cannabis use disorder Nicotine dependence Plan: -Patient continues to meet criteria for inpatient psychiatric admission for symptom stabilization and safety. Patient has not signed adult voluntary form and was placed in patient's chart. -Medications: paliperidone by mouth 9 mg daily at bedtime for mood stabilization/psychosis. at this time patient wants to remain on the pills and does not want BROCK. Trileptal 300 mg twice a day for mood stabilization. -When necessary Ativan and Haldol for agitation/aggression. -NRT - nicotine patch -SW on board for discharge planning. Encouraged the patient to participate in milieu. deferral today with medical file clerk and court scheduled for friday. if patient defers then likely dishcrage tomorrow.
[2022-08-12 14:59] VITALS: BMI 18.3
[2022-08-12] MEDS: PALIPERIDONE 3 MG TAB.ER.24 PO SCH (19:53)
[2022-08-13 06:52] VITALS: BP 139/79; PULSE 71; RESP 17
[2022-08-13] MEDS: OXcarbazepine 300 MG TAB PO SCH (08:24)
--- NOTE | 2022-08-13 10:13 | P.DS ---
Providers Date of admission: 08/08/22 21:40 Expected date of discharge: 08/13/22 Attending physician: Ascencion Rich MD Consults: 08/08/22 21:45 Consult Physician Routine Consulting Provider: Sesar Ascencio Consult Reason/Comments: Medical H&P Do you want consulting provider notified?: Yes Primary care physician: Stated None - Discharge Diagnosis(es) (1) Bipolar disorder Current Visit: Yes Status: Acute Priority: High (2) Intellectual disability Current Visit: Yes Status: Acute Priority: Medium (3) Cannabis use disorder Current Visit: Yes Status: Acute Priority: Medium (4) Nicotine dependence Current Visit: Yes Status: Acute Priority: Low Hospital Course: Admission HPI: Admission note was completed by specification writer "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 Patient presented to the hospital yesterday and was evaluated in the ED. Patient was brought in by police from his home in [place]. Patient was on a petition that described patient not taking his medications or follow-up and also describing that patient had threatened his roommate to kill him. Patient apparently used to follow up with [facility] with the nurse practitioner however has not been taking his medications and did not go to his follow-up appointments. Patient was admitted today unit involuntarily on a petition and certificate. Patient was seen today roaming the hallways and agreeable to streesme specification writer. Patient appeared to be disheveled in appearance for poor hygiene and grooming. He states that he has been off his medications for about a week now. He claims that he "called the security monitor myself". He states that "I just told them some stuff to get me up here". He claims that he is been having fluctuations in his mood and claims that he was feeling irritable and easily agitated. He states that he does not want to harm his roommate and "never said that". He has poor insight and judgment and repeatedly told specification writer that he wants to "get back on my meds" however did not explain what to help him with. He claims that he does feel irritable at this time however also describes that he is "happier" being on the unit. He states that he used to be on a long-acting injection however his nurse practitioner took him off of that. Denying any depression at this time or anxiety. States that his sleep and appetite are fair. Patient denies any suicidal or homicidal ideations intent or plan. At this time patient denies any auditory or visual hallucinations. Patient denies any flight of ideas racing thoughts and increased in goal directed behavior. Patient admits to using cigarettes daily and also marijuana daily as well." Hospital course: Upon admission to the unit patient was admitted involuntarily on a petition and certificate and a second certificate was completed and faxed with the courts. Patient ended up signing a deferral with the energy attorney and agreeing to treatment. Patient got along well with other patients on the unit and followed unit protocol. Patient was compliant with the medications and denied any side effects throughout hospital course. Patient was started on paliperidone by mouth and increased to a dose of 9 mg daily at bedtime for psychosis/mood stabilization, Trileptal 300 mg twice a day for mood stabilization. Patient at this time did not want to be transitioned onto long-acting injection and would prefer pills. Patient spoke of his stressors and engaged in therapy both group and individual. Patient was also seen by medical team for history and physical exam. Throughout the course of the hospitalization patient gradually improved with regards to mood obliteration, anxiety, sleep and returned back to their baseline level of functioning. On the day of discharge patient denied any suicidal or homicidal ideations intent or plan denied any auditory or visual hallucinations. Patient endorsed wanting to live for his health and family. The patient denied any access to guns or weapons. Patient denied any paranoia and did not endorse any delusions. Patient does have a significant history of substance abuse and was counseled on abstaining from all substances including alcohol and marijuana. Patient elected to do outpatient substance use treatment program through [facility]. Patient was also counseled on the medications and need for regular compliance and was encouraged to follow-up with their outpatient appointment for mental health and also for primary care. Mental status exam: General Appearance: Patient appears to be short in stature, thin, stated age is alert, pleasant, and cooperative. Patient is in no acute distress and has improved hygiene and grooming Behavior: Patient is calmly seated without any agitated behavior. Speech: Patient's speech is fluent and nonpressured. [place] Mood/Affect: Patient reports their mood is "good", affect is congruent and euthymic. Suicidality/Homicidality: Patient denies having any suicidal or homicidal id eation intent or plan. Perceptions: Patient denies any auditory or visual hallucinations. Though content/process: There is no evidence of any delusional thought content and thought process is linear and goal-directed. more future oriented Memory and concentration: AOX3, grossly intact for the purposes of this session. Can spell "WORLD" backwards correctly. Judgment and insight: chronically poor, however has improved with guarded prognosis Impression: Bipolar disorder Intellectual disability Cannabis use disorder Nicotine dependence Plan: -Continue with discharge today as patient has improved and stabilized psychiatrically and is not currently an imminent threat to himself and/or others. Patient will remain at chronically elevated risk for harm to self and/or others due to his impulsivity and substance abuse. -Continue medications: Paliperidone by mouth 9 mg daily at bedtime for mood stabilization/psychosis, Trileptal 300 mg twice a day for mood stabilization. -Patient was counseled on the need for medication compliance and appropriate follow-up at mental health and also primary care for medical issues. Patient verbalized understanding and agreed. -Social work to arrange for and conduct family meeting to ensure safety upon discharge and answer any questions/concerns. Social work also to arrange for patients follow up appointments with [facility] for psychiatric care along with follow up with primary care provider. -Patient counseled on abstaining from recreational drugs and marijuana and alcohol. Was informed/educated on the adverse effects on their physical and mental health. Patient verbally agreed and understood. Patient was offered substance abuse treatment however declined at this time. -Patient was instructed to return to the hospital or seek immediate medical care if their psychiatric or medical symptoms do worsen or reoccur. Allergies Allergy/AdvReac Type Severity Reaction Status Date / Time No Known Allergies Allergy Verified 08/08/22 20:09 Laboratory Results WBC 10.6 k/uL (3.8-10.6) 08/09/22 15:15 RBC 5.13 m/uL (4.30-5.90) 08/09/22 15:15 Hgb 15.6 gm/dL (13.0-17.5) 08/09/22 15:15 Hct 45.4 % (39.0-53.0) 08/09/22 15:15 MCV 88.6 fL (80.0-100.0) 08/09/22 15:15 MCH 30.4 pg (25.0-35.0) 08/09/22 15:15 MCHC 34.3 g/dL (31.0-37.0) 08/09/22 15:15 RDW 13.1 % (11.5-15.5) 08/09/22 15:15 Plt Count 204 k/uL (150-450) 08/09/22 15:15 MPV 9.0 08/09/22 15:15 Neutrophils % 75 % 08/09/22 15:15 Lymphocytes % 18 % 08/09/22 15:15 Monocytes % 5 % 08/09/22 15:15 Eosinophils % 1 % 08/09/22 15:15 Basophils % 0 % 08/09/22 15:15 Neutrophils # 8.0 k/uL (1.3-7.7) H 08/09/22 15:15 Lymphocytes # 1.9 k/uL (1.0-4.8) 08/09/22 15:15 Monocytes # 0.6 k/uL (0-1.0) 08/09/22 15:15 Eosinophils # 0.1 k/uL (0-0.7) 08/09/22 15:15 Basophils # 0.0 k/uL (0-0.2) 08/09/22 15:15 Sodium 135 mmol/L (137-145) L 08/09/22 15:15 Potassium 4.1 mmol/L (3.5-5.1) 08/09/22 15:15 Chloride 96 mmol/L (98-107) L 08/09/22 15:15 Carbon Dioxide 26 mmol/L (22-30) 08/09/22 15:15 Anion Gap 13 mmol/L 08/09/22 15:15 BUN 16 mg/dL (9-20) 08/09/22 15:15 Creatinine 0.96 mg/dL (0.66-1.25) 08/09/22 15:15 Est GFR (CKD-EPI)AfAm >90 (>60 ml/min/1.73 sqM) 08/09/22 15:15 Est GFR (CKD-EPI)NonAf >90 (>60 ml/min/1.73 sqM) 08/09/22 15:15 Glucose 80 mg/dL (74-99) 08/09/22 15:[address] Glu mg/dL 107 08/09/22 15:15 Hemoglobin A1c 5.4 % (0.0-6.0) 08/09/22 15:15 Calcium 10.3 mg/dL (8.4-10.2) H 08/09/22 15:15 Total Bilirubin 0.5 mg/dL (0.2-1.3) 08/09/22 15:15 Conjugated Bilirubin 0.0 mg/dL (0.0-0.3) 08/09/22 15:15 Unconjugated Bilirubin 0.3 mg/dL (0.0-1.1) 08/09/22 15:15 Delta Bilirubin 0.2 mg/dL (0.0-0.2) 08/09/22 15:15 AST 27 U/L (17-59) 08/09/22 15:15 ALT 22 U/L (4-49) 08/09/22 15:15 Alkaline Phosphatase 104 U/L (38-126) 08/09/22 15:15 Total Protein 7.4 g/dL (6.3-8.2) 08/09/22 15:15 Albumin 4.9 g/dL (3.5-5.0) 08/09/22 15:15 Triglycerides 46.10 mg/dL (0.00-149.00) 08/09/22 15:15 Cholesterol 171.00 mg/dL (0.00-200.00) 08/09/22 15:15 LDL Cholesterol Direct 100.00 mg/dL (0.00-129.00) 08/09/22 15:15 LDL Cholesterol, Calc mg/dL (0.0-131.0) 08/09/22 15:15 VLDL Cholesterol, Calc mg/dL (5.00-40.00) 08/09/22 15:15 HDL Cholesterol 55.20 mg/dL (40.00-60.00) 08/09/22 15:15 Cholesterol/HDL Ratio 3.10 Ratio 08/09/22 15:15 TSH 0.500 mIU/L (0.465-4.680) 08/09/22 15:15 Oxcarbazepine <1.0 ug/mL (10-35) 08/08/22 22:13 Coronavirus (PCR) Not Detected (Not Detectd) 08/08/22 19:25 Vital Signs Temp 97.1 F L 08/13/22 06:20 Pulse 71 08/13/22 06:20 Resp 17 08/13/22 06:20 BP 139/79 08/13/22 06:20 Pulse Ox 99 08/13/22 06:20 FiO2 Intake & Output 08/12/22 08/13/22 08/13/22 18:59 06:59 18:59 Weight 51.4 kg Patient Condition at Discharge: Stable Plan - Discharge Summary New Discharge Prescriptions: Continue Paliperidone [Invega] 9 mg PO HS 30 Days tab OXcarbazepine [Trileptal] 300 mg PO BID 30 Days tab Discharge Medication List OXcarbazepine [Trileptal] 300 mg PO BID 30 Days tab 08/13/22 [Rx] Paliperidone [Invega] 9 mg PO HS 30 Days tab 08/13/22 [Rx] Follow up Appointment(s)/Referral(s): [facility] [Outside] - 08/19/22 9:30 am (08-19-22 at 9:30 with Yeny Tejada 08-23-22 at 8:00 with JOHN Palacios) India Zambrano MD [REFERRING] - 1-2 days Discharge Disposition: HOME SELF-CARE
== END 2022-08-13 11:35 | disposition home or self-care (01) | DRG 885 ==
LOC: EC 16:17 → 3MHU 21:40
PROVIDERS: ADMIT Psychiatry & Neurology Psychiatry; ATTEND Psychiatry & Neurology Psychiatry
DX: F31.9 Bipolar disorder, unspecified (principal); F41.9 Anxiety disorder, unspecified; F79 Unspecified intellectual disabilities; F17.210 Nicotine dependence, cigarettes, uncomplicated; F12.10 Cannabis abuse, uncomplicated; Z90.01 Acquired absence of eye; Z79.899 Other long term (current) drug therapy; Z20.822 Contact with and (suspected) exposure to COVID-19; Z28.21 Immunization not carried out because of patient refusal
CPT/HCPCS: 80053; 80061; 80183; 82075; 82248; 83036; 83721; 84443; 85025; 87635; 99285

== ENCOUNTER 2022-10-25 16:29 | Emergency (ER) | payer MEDICARE, OTHER ==
[2022-10-25 16:37] VITALS: TEMP 96.8
[2022-10-25] MEDS ORDERED: KETOROLAC 15 MG/ML 1 ML VIAL IM STA (17:09)
--- NOTE | 2022-10-25 17:12 | ED ---
General Adult HPI - General Chief complaint: Fall Stated complaint: Left side pain Time Seen by Provider: 10/25/22 17:01 Source: patient, RN notes reviewed Mode of arrival: ambulatory Limitations: no limitations - History of Present Illness Initial comments: 37-year-old male with no significant past medical history presents to the emergency department with a chief complaint of a fall. Patient notes that he slipped and fell from about 4 steps and landed on his left side. He is complaining of left rib pain that is tender to palpation. He has been taking Tylenol without relief. He denies hitting his head, any loss of consciousness, any anticoagulant use. Patient denies any headache, vision changes, vision loss, nausea, vomiting, chest pain, palpitations, shortness of breath. Patient is a poor historian and has mental disabilities. - Related Data Previous Rx's Medication Instructions Recorded OXcarbazepine [Trileptal] 300 mg PO BID 30 Days tab 08/13/22 Paliperidone [Invega] 9 mg PO HS 30 Days tab 08/13/22 Lidocaine 5% Patch [Lidoderm] 1 patch TOPICAL DAILY #7 patch 10/25/22 Allergies Allergy/AdvReac Type Severity Reaction Status Date / Time No Known Allergies Allergy Verified 10/25/22 16:33 Review of Systems ROS Statement: Those systems with pertinent positive or pertinent negative responses have been documented in the HPI. ROS Other: All systems not noted in ROS Statement are negative. Past Medical History Past Medical History: Neurologic Disorder Additional Past Medical History / Comment(s): mentally challenged History of Any Multi-Drug Resistant Organisms: None Reported Past Surgical History: No Surgical Hx Reported Additional Past Surgical History / Comment(s): cyst over eye removed Past Psychological History: ADD/ADHD, Depression Smoking Status: Current every day smoker Past Alcohol Use History: Occasional Past Drug Use History: Marijuana General Exam Limitations: no limitations General appearance: alert, in no apparent distress Head exam: Present: atraumatic, normocephalic, normal inspection Eye exam: Present: normal appearance, PERRL, EOMI. Absent: scleral icterus, conjunctival injection, periorbital swelling ENT exam: Present: normal exam, mucous membranes moist Neck exam: Present: normal inspection. Absent: tenderness, meningismus, lymphadenopathy Respiratory exam: Present: normal lung sounds bilaterally, chest wall tenderness. Absent: respiratory distress, wheezes, rales, rhonchi, stridor, accessory muscle use (Tenderness to 4th/5th rib ) Cardiovascular Exam: Present: regular rate, normal rhythm, normal heart sounds. Absent: systolic murmur, diastolic murmur, rubs, gallop, clicks GI/Abdominal exam: Present: soft, normal bowel sounds. Absent: distended, tenderness, guarding, rebound, rigid Extremities exam: Present: normal inspection, full ROM, normal capillary refill. Absent: tenderness, pedal edema, joint swelling, calf tenderness Back exam: Present: normal inspection Neurological exam: Present: alert, oriented X3, CN II-XII intact Psychiatric exam: Present: normal affect, normal mood Skin exam: Present: warm, dry, intact, normal color. Absent: rash Course Vital Signs 10/25/22 16:30 Temperature 96.8 F L Pulse Rate 112 H Respiratory 20 Rate Blood Pressure 167/84 O2 Sat by Pulse 99 Oximetry - Reevaluation(s) Reevaluation #1: 10/25/22 18:22 Should reevaluated. Patient reports symptomatic relief status post Toradol and Lidoderm patch placement. Medical Decision Making - Medical Decision Making Was pt. sent in by a medical professional or institution (, PA, TUNNEL KILN REPAIRER, urgent care, hospital, or group home...) When possible be specific @ -[No] Did you speak to anyone other than the patient for history (EMS, parent, family, police, friend...)? What history was obtained from this source @ -[No] Did you review nursing and triage notes (agree or disagree)? Why? @ -[I reviewed and agree with nursing and triage notes] Were old charts reviewed (outside hosp., previous admission, EMS record, old EKG, old radiological studies, urgent care reports/EKG's, group home records)? Report findings @ -[No old charts were reviewed] Differential Diagnosis (chest pain, altered mental status, abdominal pain women, abdominal pain men, vaginal bleeding, weakness, fever, dyspnea, syncope, h eadache, dizziness, GI bleed, back pain, seizure, CVA, palpatations, mental health)? @ -[not applicable] EKG interpreted by me (3pts min.). @ -[As above] X-rays interpreted by me (1pt min.). @ -negative for rib fracture or evidence of pneumothorax CT interpreted by me (1pt min.). @ -[None done] U/S interpreted by me (1pt. min.). @ -[None done] What testing was considered but not performed or refused? (CT, X-rays, U/S, labs)? Why? @ -[None] What meds were considered but not given or refused? Why? @ -[None] Did you discuss the management of the patient with other professionals (professionals i.e. , PA, TUNNEL KILN REPAIRER, lab, RT, psych nurse, nephrology social worker, production consultant, teacher, chief financial officer, caser)? Give summary @ -[No] Was smoking cessation discussed for >3mins.? @ -[No] Was critical care preformed (if so, how long)? @ -[No] Were there social determinants of health that impacted care today? How? (Homelessness, low income, unemployed, alcoholism, drug addiction, transportation, low edu. Level, literacy, decrease access to med. care, mcc, rehab)? @ -[No] Was there de-escalation of care discussed even if they declined (Discuss DNR or withdrawal of care, Hospice)? DNR status @ -[No] What co-morbidities impacted this encounter? (DM, HTN, Smoking, COPD, CAD, Cancer, CVA, ARF, Chemo, Hep., AIDS, mental health diagnosis, sleep apnea, m orbid obesity)? @ -[None] Was patient admitted / discharged? Hospital course, mention meds given and route, prescriptions, significant lab abnormalities, going to OR and other pertinent info. @ 37-year-old male presents to the emergency department with Left rib pain. He should had a history and physical performed. Physical exam is essentially unremarkable, with mild tenderness to 8th/9th ribs. XR negative. Patient was given toradol and lidoderm patch with symptomatic relief while in the ED. Patient given a prescription for lidoderm patches. I discussed the natural history of rib pain and contusions with the patient patient verbalized understanding and all questions were addressed. Return precautions were discussed. Patient was discharged in stable condition. I discussed case with RIA Rodriguez who agrees with plan of care. Undiagnosed new problem with uncertain prognosis? @ -[No] Drug Therapy requiring intensive monitoring for toxicity (Heparin, Nitro, Insulin, Cardizem)? @ -[No] Were any procedures done? @ -[No] Diagnosis/symptom? @ - L rib pain - Contusion Acute, or Chronic, or Acute on Chronic? @ -acute Uncomplicated (without systemic symptoms) or Complicated (systemic symptoms)? @ -uncomplicated Side effects of treatment? @ -[No] Exacerbation, Progression, or Severe Exacerbation? @ -[No] Poses a threat to life or bodily function? How? (Chest pain, [place], [place], pneumonia, PE, COPD, DKA, ARF, appy, cholecystitis, CVA, Diverticulitis, Homicidal, Suicidal, threat to staff... and all critical care pts) @ -[No] Disposition Clinical Impression: Fall, Rib pain on left side Disposition: HOME SELF-CARE Condition: Stable Instructions (If sedation given, give patient instructions): Rib Contusion (ED) Additional Instructions: Please return to the nearest emergency department if symptoms worsen or persist. Prescriptions: Lidocaine 5% Patch [Lidoderm] 1 patch TOPICAL DAILY #7 patch Is patient prescribed a controlled substance at d/c from ED?: No Referrals: None,Stated [Primary Care Provider] - 1-2 days Time of Disposition: 18:23
[2022-10-25] MEDS ORDERED: LIDOCAINE 5% PATCH TOPICAL SCH (17:45)
--- NOTE | 2022-10-25 17:50 | XR ---
EXAMINATION TYPE: XR chest 2V DATE OF EXAM: 10/25/2022 COMPARISON: 07/13/2020 HISTORY: Chest pain TECHNIQUE: FINDINGS: Heart and mediastinum are normal. Lungs are clear. Diaphragm is normal. No evidence of pleu ral effusion or pneumothorax. Lungs are clear of infiltrate. IMPRESSION: Normal chest. No change.
[2022-10-25 18:41] VITALS: BP 158/72; PULSE 100; RESP 18
== END 2022-10-25 18:41 | disposition home or self-care (01) ==
LOC: EC 16:29
DX: R07.81 Pleurodynia (principal); F32.A Depression, unspecified; F12.90 Cannabis use, unspecified, uncomplicated; F17.200 Nicotine dependence, unspecified, uncomplicated; W10.9XXA Fall (on) (from) unspecified stairs and steps, initial encounter
CPT/HCPCS: 71046; 99284; 96372; J1885

== ENCOUNTER 2024-06-21 08:33 | Emergency (ER) | payer MEDICARE, OTHER ==
[2024-06-21 08:43] VITALS: RESP 18
--- NOTE | 2024-06-21 09:06 | ED ---
General Adult HPI - General Chief complaint: Recheck/Abnormal Lab/Rx Stated complaint: STD testing Time Seen by Provider: 06/21/24 08:40 Source: patient, RN notes reviewed, old records reviewed Mode of arrival: ambulatory Limitations: no limitations - History of Present Illness Initial comments: This is a 39-year-old male who presents to the emergency department requesting an HIV test. I asked the patient why he wanted that he stated because he wants to make sure he does not have HIV because he has been sleeping with somebody different recently. I asked him if he had any reason to believe that person has HIV he stated no I said you told the other people yes out front and triage. Patient stated he just is worried about it so he wants to test. Patient states he does not have any reason to believe the person he was having sex with has HIV. He himself has no symptoms and no complaints. - Related Data Previous Rx's Medication Instructions Recorded OXcarbazepine [Trileptal] 300 mg PO BID 30 Days tab 08/13/22 Paliperidone [Invega] 9 mg PO HS 30 Days tab 08/13/22 Lidocaine 5% Patch [Lidoderm] 1 patch TOPICAL DAILY #7 patch 10/25/22 Allergies Allergy/AdvReac Type Severity Reaction Status Date / Time No Known Allergies Allergy Verified 06/21/24 08:39 Review of Systems ROS Statement: Those systems with pertinent positive or pertinent negative responses have been documented in the HPI. ROS Other: All systems not noted in ROS Statement are negative. Past Medical History Past Medical History: Neurologic Disorder Additional Past Medical History / Comment(s): mentally challenged History of Any Multi-Drug Resistant Organisms: None Reported Past Surgical History: No Surgical Hx Reported Additional Past Surgical History / Comment(s): cyst over eye removed Past Psychological History: ADD/ADHD, Depression Smoking Status: Current every day smoker Past Alcohol Use History: Occasional Past Drug Use History: Marijuana General Exam - General Exam Comments Initial Comments: GENERAL: Patient is well-developed and well-nourished. Patient is nontoxic and well- hydrated and is in no acute distress. ENT: Neck is soft and supple. No significant lymphadenopathy is noted. Oropharynx is clear. Moist mucous membranes. Neck has full range of motion without eliciting any pain. EYES: The sclera were anicteric and conjunctiva were pink and moist. Extraocular movements were intact and pupils were equal round and reactive to light. Eyelids were unremarkable. SKIN: Skin is clear with no lesions or rashes and otherwise unremarkable. NEUROLOGIC: Patient is alert and oriented x3. Cranial nerves II through XII are grossly intact. Motor and sensory are also intact. Normal speech, volume and content. Symmetrical smile. MUSCULOSKELETAL: Normal extremities with adequate strength and full range of motion. LYMPHATICS: No significant lymphadenopathy is noted PSYCHIATRIC: Normal psychiatric evaluation. Limitations: no limitations Course Vital Signs 06/21/24 08:35 Temperature 98 F Pulse Rate 82 Respiratory 18 Rate Blood Pressure 147/82 O2 Sat by Pulse 98 Oximetry Medical Decision Making - Medical Decision Making Was pt. sent in by a medical professional or institution (, SHIRA, ELECTRIC HOIST OPERATOR, urgent care, hospital, or usp...) When possible be specific @ -No Did you speak to anyone other than the patient for history (EMS, parent, family, police, friend...)? What history was obtained from this source @ -No Did you review nursing and triage notes (agree or disagree)? Why? @ -I reviewed and agree with nursing and triage notes Were old charts reviewed (outside hosp., previous admission, EMS record, old EKG, old radiological studies, urgent care reports/EKG's, usp records)? Report findings @ -No old charts were reviewed Differential Diagnosis? @ -Chest pain, altered mental status, abdominal pain women, abdominal pain men, vaginal bleeding, weakness, fever, dyspnea, syncope, headache, dizziness, GI bleed, back pain, seizure, CVA, palpatations, mental health, musculoskeletal EKG interpreted by me (3pts min.). @ -As above X-rays interpreted by me (1pt min.). @ -None done CT interpreted by me (1pt min.). @ -None done U/S interpreted by me (1pt. min.). @ -None done What testing was considered but not performed or refused? (CT, X-rays, U/S, labs)? Why? @ -None What meds were considered but not given or refused? Why? @ -None Did you discuss the management of the patient with other professionals (professionals i.e. , SHIRA, ELECTRIC HOIST OPERATOR, lab, RT, psych nurse, healthcare social worker, safety security officer, teacher, environmental conservation officer, case hardener)? Give summary @ -No Was smoking cessation discussed for >3mins.? @ -No Was critical care preformed (if so, how long)? @ -No Were there social determinants of health that impacted care today? How? (Homelessness, low income, unemployed, alcoholism, drug addiction, transportation, low edu. Level, literacy, decrease access to med. care, correction, rehab)? @ -No Was there de-escalation of care discussed even if they declined (Discuss DNR or withdrawal of care, Hospice)? DNR status @ -No What co-morbidities impacted this encounter? (DM, HTN, Smoking, COPD, CAD, Cancer, CVA, ARF, Chemo, Hep., AIDS, mental health diagnosis, sleep apnea, morbid obesity)? @ -None Was patient admitted / discharged? Hospital course, mention meds given and route, prescriptions, significant lab abnormalities, going to OR and other pertinent info. @ -Patient wanted HIV test but we had no symptoms and had no reason to believe anybody he slept with had HIV and I asked him this question on 3 different occasions and patient was consistent to me even though he was inconsistent with triage. Patient will have no testing done here I told him he can follow-up with the health department. Undiagnosed new problem with uncertain prognosis? @ -No Drug Therapy requiring intensive monitoring for toxicity (Heparin, Nitro, Insulin, Cardizem)? @ -No Were any procedures done? @ -No Diagnosis/symptom? @ -Normal exam Acute, or Chronic, or Acute on Chronic? @ -Acute Uncomplicated (without systemic symptoms) or Complicated (systemic symptoms)? @ -Uncomplicated Side effects of treatment? @ -No Exacerbation, Progression, or Severe Exacerbation? @ -No Poses a threat to life or bodily function? How? (Chest pain, [place], [place], pneumonia, PE, COPD, DKA, ARF, appy, cholecystitis, CVA, Diverticulitis, Homicidal, Suicidal, threat to staff... and all critical care pts) @ -No Disposition Clinical Impression: Normal exam Disposition: HOME SELF-CARE Condition: Good Is patient prescribed a controlled substance at d/c from ED?: No Referrals: None,Stated [Primary Care Provider] - 1-2 days Time of Disposition: 09:05
[2024-06-21 09:09] VITALS: BP 145/78; PULSE 78; TEMP 97.9
== END 2024-06-21 09:10 | disposition home or self-care (01) ==
LOC: EC 08:33
CPT/HCPCS: 99283

== ENCOUNTER 2024-12-19 10:06 | Emergency (ER) | payer MEDICARE, MEDICAID ==
[2024-12-19 10:13] VITALS: RESP 18; TEMP 97.1
--- NOTE | 2024-12-19 10:43 | XR ---
EXAMINATION TYPE: XR KUB DATE OF EXAM: 12/19/2024 COMPARISON: Renal ultrasound 11/19/2024, CT abdomen and pelvis 08/31/2018 HISTORY: Pain, constipation TECHNIQUE: Single upright KUB image of the abdomen is obtained FINDINGS: Small bowel demonstrates no evidence for dilatation or air fluid levels. Gas and fecal material is seen in non-distended colon. No convincing evidence for pneumoperitoneum. Right renal calculus measuring 1.5 x 0.6 cm. The lung bases are clear. The osseous structures are intact. IMPRESSION: 1. Overall nonobstructive bowel gas pattern. 2. Right renal calculus. [facility], , 12/19/2024 10:41 AM
--- NOTE | 2024-12-19 10:50 | ED ---
Abdominal Pain HPI - General Chief Complaint: Abdominal Pain Stated Complaint: constipation Time Seen by Provider: 12/19/24 10:09 Source: patient, RN notes reviewed Mode of arrival: ambulatory Limitations: no limitations - History of Present Illness Initial Comments: 39-year-old male presents emergency department complaint of constipation. Patient has not had a bowel movement several days. Patient states he feels like he has to go. Patient denies any dysuria hematuria denies any abdominal pain localized states she has abdominal cramping. Patient denies any fevers chills chest pain shortness of breath no other associated symptoms. - Related Data Previous Rx's Medication Instructions Recorded Nicotine 21Mg/24Hr Patch [Habitrol] 1 patch TRANSDERM DAILY 14 Days 11/24/24 #14 patch OXcarbazepine [Trileptal] 300 mg PO BID 30 Days #60 tablet 11/24/24 Paliperidone [Invega] 6 mg PO DAILY 30 Days #30 tab 11/24/24 Allergies Allergy/AdvReac Type Severity Reaction Status Date / Time No Known Allergies Allergy Verified 12/19/24 10:13 Review of Systems ROS Statement: Those systems with pertinent positive or pertinent negative responses have been documented in the HPI. ROS Other: All systems not noted in ROS Statement are negative. Past Medical History Past Medical History: Neurologic Disorder Additional Past Medical History / Comment(s): mentally challenged History of Any Multi-Drug Resistant Organisms: None Reported Past Surgical History: No Surgical Hx Reported Additional Past Surgical History / Comment(s): cyst over eye removed Past Anesthesia/Blood Transfusion Reactions: No Reported Reaction Past Psychological History: ADD/ADHD, Depression Smoking Status: Current every day smoker Past Alcohol Use History: Occasional Past Drug Use History: Marijuana General Exam Limitations: no limitations General appearance: alert, in no apparent distress Head exam: Present: atraumatic, normocephalic, normal inspection Eye exam: Present: normal appearance, PERRL, EOMI. Absent: scleral icterus, conjunctival injection, periorbital swelling ENT exam: Present: normal exam, mucous membranes moist Neck exam: Present: normal inspection. Absent: tenderness, meningismus, lymphadenopathy Respiratory exam: Present: normal lung sounds bilaterally. Absent: respiratory distress, wheezes, rales, rhonchi, stridor Cardiovascular Exam: Present: regular rate, normal rhythm, normal heart sounds. Absent: systolic murmur, diastolic murmur, rubs, gallop, clicks GI/Abdominal exam: Present: soft, normal bowel sounds. Absent: distended, tenderness, guarding, rebound, rigid Course Vital Signs 12/19/24 10:10 Temperature 97.1 F L Pulse Rate 59 L Respiratory 18 Rate Blood Pressure 160/83 O2 Sat by Pulse 99 Oximetry Medical Decision Making - Medical Decision Making Was pt. sent in by a medical professional or institution (, SHIRA, TRIAL COURT JUDGE, urgent care, hospital, or [facility]cc...) When possible be specific @ -No Did you speak to anyone other than the patient for history (EMS, parent, family, police, friend...)? What history was obtained from this source @ -No Did you review nursing and triage notes (agree or disagree)? Why? @ -I reviewed and agree with nursing and triage notes Were old charts reviewed (outside hosp., previous admission, EMS record, old EKG, old radiological studies, urgent care reports/EKG's, [facility]cc records)? Report findings @ -No old charts were reviewed Differential Diagnosis (chest pain, altered mental status, abdominal pain women, abdominal pain men, vaginal bleeding, weakness, fever, dyspnea, syncope, headache, dizziness, GI bleed, back pain, seizure, CVA, palpatations, mental health, musculoskeletal)? @ -Differential Abdominal Pain Men: Appendicitis, cholecystitis, diverticulosis, ischemic bowel, pancreatitis, hepatitis, UTI, gastroenteritis, AAA, incarcerated hernia, bowel obstruction, constipation, inflammatory bowel, hepatitis, peptic ulcer disease, splenic infarction, perforated viscus, testicular torsion, this is not meant to be an all-inclusive list EKG interpreted by me (3pts min.). @ -None X-rays interpreted by me (1pt min.). @ -X-ray KUB shows mild gas and stool noted, nondistended bowels, right renal calculus CT interpreted by me (1pt min.). @ -None done U/S interpreted by me (1pt. min.). @ -None done What testing was considered but not performed or refused? (CT, X-rays, U/S, labs)? Why? @ -None What meds were considered but not given or refused? Why? @ -None Did you discuss the management of the patient with other professionals (professionals i.e. SHIRA Hawk, TRIAL COURT JUDGE, lab, RT, psych nurse, adoption social worker, biometric fingerprinting technician, teacher, navigating officer, director case management)? Give summary @ -No Was smoking cessation discussed for >3mins.? @ -No Was critical care preformed (if so, how long)? @ -No Were there social determinants of health that impacted care today? How? (Homelessness, low income, unemployed, alcoholism, drug addiction, transportation, low edu. Level, literacy, decrease access to med. care, nursing home, rehab)? @ -No Was there de-escalation of care discussed even if they declined (Discuss DNR or withdrawal of care, Hospice)? DNR status @ -No What co-morbidities impacted this encounter? (DM, HTN, Smoking, COPD, CAD, Cancer, CVA, ARF, Chemo, Hep., AIDS, mental health diagnosis, sleep apnea, morbid obesity)? @ -None Was patient admitted / discharged? Hospital course, mention meds given and route, prescriptions, significant lab abnormalities, going to OR and other pertinent info. @ -Discharge patient does not have any overt signs of constipation though patient does feel constipated patient does have kidney swelling right updated on x-ray findings. Vitally stable has no localized abdominal tenderness. Patient is discharged in stable condition. Undiagnosed new problem with uncertain prognosis? @ -No Drug Therapy requiring intensive monitoring for toxicity (Heparin, Nitro, Insulin, Cardizem)? @ -No Were any procedures done? @ -No Diagnosis/symptom? @ -[Constipation Acute, or Chronic, or Acute on Chronic? @ -Acute Uncomplicated (without systemic symptoms) or Complicated (systemic symptoms)? @ -Uncomplicated Side effects of treatment? @ -No Exacerbation, Progression, or Severe Exacerbation? @ -No Poses a threat to life or bodily function? How? (Chest pain, [place], [place], pneumonia, PE, COPD, DKA, ARF, appy, cholecystitis, CVA, Diverticulitis, Homicidal, Suicidal, threat to staff... and all critical care pts) @ -No Disposition Clinical Impression: Abdominal pain, Constipation Disposition: HOME SELF-CARE Condition: Stable Instructions (If sedation given, give patient instructions): Abdominal Pain (ED) Additional Instructions: Please return to the Emergency Department if symptoms worsen or any other concerns. Is patient prescribed a controlled substance at d/c from ED?: No Referrals: None,Stated [Primary Care Provider] - 1-2 days Time of Disposition: 10:50
[2024-12-19] MEDS: MAGNESIUM CITRATE 296 ML BOTTLE PO ONE (11:33)
[2024-12-19 11:36] VITALS: BP 128/89; PULSE 78
== END 2024-12-19 11:36 | disposition home or self-care (01) ==
LOC: EC 10:06
DX: K59.00 Constipation, unspecified (principal); F17.200 Nicotine dependence, unspecified, uncomplicated; N20.0 Calculus of kidney
CPT/HCPCS: 74018; 99284